=== PATIENT | female | born 1945 | race Caucasian/White ===

== ENCOUNTER → 2020-05-14 01:35 | Outpatient (CLI) | payer MEDICARE, SELFPAY ==
[2020-05-14 22:34] LABS: SARS-CoV-2 RNA PCR Negative
== END ==
PROVIDERS: PCP Internal Medicine; Visit Provider Internal Medicine Critical Care Medicine
DX: Z01.812 Encounter for preprocedural laboratory examination (principal); Z20.822 Contact with and (suspected) exposure to COVID-19; I49.9 Cardiac arrhythmia, unspecified
CPT/HCPCS: C9803; U0003; U0005

== ENCOUNTER 2020-05-14 12:32 | Outpatient (CLI) | payer MEDICARE, SELFPAY ==
--- NOTE | 2020-05-14 | ECHO_ITS ---
Patient Info Name: Laurel Sandy Age: 74 years : 1945 Gender: Female Ht: 60 in Wt: 185 lbs BSA: 1.93 m2 HR: 88 bpm BP: 145 / 78 mmHg Heart Rhythm: Atrial Fibrillation Technical Quality: Good Exam Date: 05/14/2020 1:21 PM Exam Location: [facility] Patient Status: Outpatient Admit Date: 05/14/2020 Staff Ordering Physician: PatrickCiro MD Alley Tender: Nayeli Gamez RDCS Attending Provider: CassCiro MD Exam Type: CA echo doppler color flow Study Info Indications - cardiach arrhythmia Complete two-dimensional, color flow and Doppler transthoracic echocardiogram is performed. Summary 1. Complete two-dimensional, color flow and Doppler transthoracic echocardiogram is performed. 2. The left ventricle is of normal size and thickness with good contractility of all segments and no focal wall motion abnormalities. The visual ejection fraction is 55-60% and calculated ejection fraction 64%. Diastolic dysfunction is present. 3. Right ventricular chamber dimension is mildly enlarged with normal systolic function.. 4. Left atrial chamber dimension is severely enlarged. 5. Right atrial chamber dimension is moderately enlarged. 6. There is moderate mitral valve regurgitation. 7. There is mild tricuspid valve regurgitation. 8. No pulmonary hypertension, estimated pulmonary arterial systolic pressure is 32 mmHg. 9. Atrial fibrillation. Left Ventricle Left ventricular chamber dimension is normal. Left ventricular systolic function is normal, estimated at 55-60%. There is no increased left ventricular wall thickness. Left ventricular septal wall motion is normal. The left ventricular diastolic function is abnormal. Right Ventricle Right ventricular chamber dimension is mildly enlarged with normal systolic function.. Right ventricular systolic function is normal. Left Atria Left atrial chamber dimension is severely enlarged. Right Atria Right atrial chamber dimension is moderately enlarged. Aortic Valve The aortic valve is trileaflet. There is mild aortic valve sclerosis. There is no aortic valve stenosis. There is no aortic valve regurgitation. Pulmonic Valve The pulmonic valve is normal. There is no pulmonic valve stenosis. There is no pulmonic regurgitation. Mitral Valve The mitral valve has thickened leaflets. There is no mitral valve stenosis. There is moderate mitral valve regurgitation. Tricuspid Valve The tricuspid valve leaflets are normal. There is no significant tricuspid valve stenosis. There is mild tricuspid valve regurgitation. No pulmonary hypertension, estimated pulmonary arterial systolic pressure is 32 mmHg. Pericardium/Pleural The pericardium appears normal. There is no pericardial effusion. Inferior Vena Cava Normal inferior vena cava with >50% collapse upon inspiration consistent with Empty right atrial pressure, 10 mmHg. Aorta The aortic root size at the sinus of Valsalva is normal. The prox ascending aorta size is normal. Left Ventricular Outflow Tract Name Value Normal LVOT 2D LVOT Diameter 2.0 cm LVOT Doppler LVOT
== END 2020-05-14 12:33 | disposition home or self-care (01) ==
PROVIDERS: PCP Internal Medicine; Visit Provider Internal Medicine
DX: I49.9 Cardiac arrhythmia, unspecified (principal); I48.91 Unspecified atrial fibrillation; I08.1 Rheumatic disorders of both mitral and tricuspid valves
CPT/HCPCS: 93306; C9803; U0003; U0005

== ENCOUNTER 2020-05-16 07:07 | Outpatient (CLI) | payer MEDICARE, SELFPAY ==
--- NOTE | 2020-06-02 22:12 | WPDSLEEPSTUD ---
Sleep Study Date of Study: 05/16/20 Ordering Provider: Ciro Nguyen, Interpreting Physician: Naima Durbin MD Sleep Study Type: Polysomnogram Height: 1.55 m Weight: 83.915 kg Body Mass Index: 34.9 Neck Circumference: 4.57 m Maben: 11 Reason for Sleep Study Loud snoring, excessive daytime sleepiness Sleep History Laurel Sandy is a 74 year-old female wakes up during the night, wakes up in the churn tender hours and has excessive daytime sleepiness. She frequently snores but it is never loud enough that others complain about it. She occasionally awakens at night with heartburn, belching or coughing. She does not awaken from sleep feeling short of breath. She frequently has trouble sleeping with a cold. She does not wake up gasping for breath at night and does not have severe breathing problems reported to her by others. She rarely sweats excessively at night. She frequently notices her heart pounding or beating irregularly at night. She frequently falls asleep during the day, never involuntarily and never while driving. She does not have loss of muscle tone with strong emotion. She does not have daytime difficulties due to excessive sleepiness. She does not feel paralyzed on waking or falling asleep. She occasionally has vivid dreamlike scenes upon awakening or falling asleep. She does not feel afraid to go to sleep. She occasionally has nightmares. She occasionally remembers her dreams. She does not have racing thoughts. She rarely feels sad or depressed. She rarely has anxiety. She rarely has muscular tension. She rarely notices parts of her body jerking and she rarely kicks at night. She really has crawling and aching feelings in her legs. She occasionally has leg pain at night. She does not have morning jaw pain. She frequently grinds her teeth during sleep. She occasionally has bothered by pain during the day, occasionally has awakened by pain at night. She frequently wakes up feeling stiff in the morning, occasionally with sore achy muscles and occasionally with pain in the neck and spine. She has fatigue and nightmares. Normal bedtime is 10:30 p.m. taking 5 minutes to fall asleep. She wakes 1 or 2 times at night to urinate. It takes her 5- 30 minutes to return to sleep. She estimates getting 6 hours of sleep most nights. She wakes in the morning sometime between 4:00 a.m. and 7:00 a.m.. Her weekend schedule is the same. She may take a nap in the afternoon or evening. A short 10 or 15 minute nap may be refreshing. She is usually drowsy in the morning for 3 hours or longer. Habits: Never smoked tobacco. No caffeine alcohol or recreational drugs. [facility] Past Medical History Medical History (Updated 06/02/20 @ 22:27 by Naima Durbin MD) Arthritis Chronic anticoagulation Coronary artery disease Hyperlipidemia Hypertension Rhinitis Seasonal asthma Surgical History Surgical History (Updated 06/02/20 @ 22:22 by Naima Durbin MD) History of mastectomy Social History Social History (Updated 06/02/20 @ 22:22 by Naima Durbin MD) Smoking status: Never smoker Alcohol intake: never Occupation/Education: retired Medications Medications: atenolol 100 mg a day Rosuvastatin 10 mg a day enalapril 10 mg a day hydrochlorothiazide 25 mg a day Eliquis 5 mg b.i.d. ProAir 1 puff Q 6 hours p.r.n. shortness of breath Pataday eye drops 1 drop each eye daily glucosamine and chondroitin 1 tablet daily Flonase when needed for nasal allergies Zaditor eye drops daily when needed Sleep Procedure This test was performed using the [employer] multiple channel system including EOG, EEG, submental EMG, EKG, nasal and oral airflow using thermistors and nasal pressure sensors, chest and abdominal belts for body position data, and pulse oximetry. Video monitoring was also performed. The study was scored using CMS guidelines. Sleep Architecture The recording time is 412.8 minutes. The slee
[2020-06-02 22:38] VITALS: BMI 34.9
== END 2020-05-16 07:08 | disposition home or self-care (01) ==
LOC: ANHCSM 07:08
PROVIDERS: PCP Internal Medicine; Visit Provider Internal Medicine
DX: R06.83 Snoring (principal); I48.20 Chronic atrial fibrillation, unspecified
CPT/HCPCS: 95810

== ENCOUNTER 2023-05-10 22:38 | Emergency (ER) | payer MEDICARE, OTHER, SELFPAY ==
--- NOTE | ~2023-05-10 | CT_ITS ---
EXAMINATION: CT brain wo con DATE: 05/10/2023 23:44 INDICATION: dizziness, L arm pins and needles, L eye unfocused . TECHNIQUE: Computed tomography (CT) of the head was performed without intravenous contrast. The mA wa s adjusted according to patient size. Iterative reconstruction technique was employed. The dose-lengt h product was 605.33 mGy-cm. COMPARISON: None. FINDINGS: No acute intracranial hemorrhage or extra-axial fluid collection. No hydrocephalus, mass, or herniation. No acute ischemic infarct. Unremarkable dural venous sinus attenuation. No acute osseous abnormality. The aerated spaces are clear. Mild atrophy and chronic white matter change. Atherosclerotic intracranial calcification. IMPRESSION: No acute intracranial process. Reviewed, dictated and finalized at location K. [facility]
[2023-05-10 22:52] VITALS: BP 142/100; PULSE 78; RESP 17; TEMP 36.7; O2SAT 99
[2023-05-10 23:19] LABS: Glucose Point of Care 90 mg/dl (65-105)
--- NOTE | 2023-05-11 | ECG_ITS ---
Measurements Intervals [place] Rate: 67 P: CT: 0 QRS: -3 QRSD: 89 T: 46 QT: 411 QTc: 437 Interpretive Statements ATRIAL FIBRILLATION POSSIBLE SEPTAL MYOCARDIAL INFARCTION , PROBABLY OLD [40+ ms Q WAVE IN V1/V2] COMPARED TO ECG 12/22/2018 21:08:43 ATRIAL FIBRILLATION NOW PRESENT MYOCARDIAL INFARCT FINDING NOW PRESENT Electronically Signed On 05-11-2023 15:15:27 SMALL STOCK FACER by Mariana Medeiros M.D.
[2023-05-11 00:15] LABS: Basophils Percent Auto 0.5 % (0.2-1.2); Eosinophils Absolute Auto 0.2 K/mm3 (0-0.3); Hematocrit 44.5 % (37.0-47.0); Immature Granulocyte Absolute 0.01 K/mm3 (0.00-0.031); Immature Granulocyte Percent A 0.2 % (0-0.5); Lymphocytes Percent Auto 36.3 % (18.3-44.2); Mean Corpuscular HGB Conc 33.7 g/dl (32-36); Mean Corpuscular Hemoglobin 30.9 pg (26-34); Mean Corpuscular Volume 91.6 fl (80-100); Mean Platelet Volume 10.3 fl (7.4-10.4); Monocytes Absolute Auto 0.8 K/mm3 (0.1-0.6); Monocytes Percent Auto 11.8 % (2.6-8.5); Neutrophils Absolute Auto 3.1 K/mm3 (1.3-6.7); Neutrophils Percent Auto 48.2 % (45.5-73.1); Platelet Count Result 216 k/mm3 (150-375); Red Blood Count 4.86 M/mm3 (4.2-5.4); Red Cell Distribution Width 13.4 % (11.5-14.5); White Blood Count 6.3 K/mm3 (4.5-10.0)
[2023-05-11 00:27] LABS: INR 1.1; Prothrombin Time 14.6 Seconds (11.1-14.7)
[2023-05-11 00:28] LABS: Partial Thromboplastin Time 32.5 SECONDS (22.3-36.8)
[2023-05-11 00:30] LABS: Alanine Aminotransferase 28 U/L (6-35); Albumin Level 4.3 g/dL (3.5-5.1); Alkaline Phosphatase 79 U/L (38-126); Anion Gap 5 mmol/L (8-16); Aspartate Amino Transferase 35 U/L (14-36); Bilirubin,Total 0.7 mg/dL (0.2-1.3); Blood Urea Nitrogen 14 mg/dL (7-17); Calcium 9.5 mg/dL (8.4-10.2); Carbon Dioxide 33 mmol/L (22-30); Chloride 99 mmol/L (98-107); Estimated CRCL calculation 51 ml/min; Estimated Glomerular Filt Rate > 60; Glucose 94 mg/dL (65-110); Potassium 3.8 mmol/L (3.4-5.0); Sodium 137 mmol/L (137-145)
[2023-05-11 00:42] LABS: Troponin I < 0.012 ng/mL (0.000-0.034)
[2023-05-11] MEDS: SODIUM CHLORIDE 0.9% IV 1,000 ML 999 ML IV CONT (01:58)
[2023-05-11 02:08] LABS: Magnesium 2.3 mg/dL (1.6-2.3)
[2023-05-11 02:36] LABS: Appearance Urine Cloudy (Clear); Bacteria Urine 4+ /hpf; Bilirubin Urine Negative (Negative); Color Urine Yellow (Yellow); Glucose Urine UA Negative (Negative); Ketones Urine Negative (Negative); Leukocyte Esterase Ur 3+ LEU/UL (Negative); Nitrate Urine Positive (Negative); Non Pathogenic Casts 0-2; Protein Urine Negative (Negative); RBC Urine 0-2 /hpf (0-2); Specific Grav Ur 1.008 (1.001-1.035); Squamous Epithelial Cell Urine None seen /hpf (Few); WBC Urine >100 /hpf; pH Urine 7.5 (5.0-9.0)
[2023-05-11 02:41] LABS: Add Urine Microscopic? YES
[2023-05-11 03:26] VITALS: BP 143/69; PULSE 64; RESP 15; O2SAT 99
[2023-05-11 03:30] VITALS: PULSE 63
[2023-05-11 04:10] VITALS: BP 136/85; PULSE 64; RESP 15; O2SAT 97
--- NOTE | 2023-05-11 04:15 | ED.GENADULT ---
HPI - General Adult General Chief complaint: Dizziness Stated complaint: dizziness, left eye wavy Time Seen by Provider: 05/11/23 01:21 History of Present Illness HPI narrative: patient 77-year-old female presents emergency department with chief complaint of dizziness. Patient reports that she had an episode where she was trying to read and notice that her eyes were moving and also noticed that she had waves in her vision the patient also reports that she had pins and needles in her left arm when this occurred. The patient states it started around 9:30 p.m. and lasted for just a few minutes. The patient states during this episode she had some tightness in her chest as well. The patient reports no syncope denies focal weakness Related Data Allergies Allergy/AdvReac Type Severity Reaction Status Date / Time codeine Allergy Unknown Verified 12/22/18 16:25 latex Allergy Unknown Verified 12/22/18 16:25 Review of Systems Review of Systems: A 10 system review of systems was completed on the patient and is negative except for what is stated in the HPI. Nursing and ancillary documentation was reviewed. [facility] Past Medical History Medical History Arthritis Chronic anticoagulation Coronary artery disease Hyperlipidemia Hypertension Rhinitis Seasonal asthma Surgical History Surgical History History of mastectomy Social History Social History Smoking status: Never smoker Alcohol intake: never Occupation/Education: retired Exam Narrative: GENERAL: Well-appearing, well-nourished, and in no acute distress. HEAD: Normocephalic, atraumatic. EYES: PERRLA and EOMI. ENT: Nares clear, no rhinorrhea or epistaxis. Mucous membranes moist. NECK: Supple. CHEST: Clear to auscultation. No respiratory distress. HEART: Regular rate and rhythm. No murmur heard. Normal peripheral pulses. ABDOMEN: Soft, nontender, nondistended, normal active bowel sounds. EXTREMITIES: Normal range of motion. No edema. SKIN: Warm, dry, no rash. NEURO: No focal deficits. Alert and oriented x3. NIH 0 PSYCH: Normal mood and affect. Course Vital Signs Vital signs: Vital Signs Temperature 36.7 C 05/10/23 22:52 Pulse Rate 78 05/10/23 22:52 Respiratory Rate 17 05/10/23 22:52 Blood Pressure 142/100 H 05/10/23 22:52 Pulse Oximetry 99 05/10/23 22:52 Oxygen Delivery Room Air 05/10/23 22:52 Temperature 36.7 C 05/10/23 22:52 Pulse Rate 64 05/11/23 04:10 Respiratory Rate 15 05/11/23 04:10 Blood Pressure 136/85 05/11/23 04:10 Pulse Oximetry 97 05/11/23 04:10 Oxygen Delivery Room Air 05/10/23 22:52 Medical Decision Making MDM Narrative Medical decision making narrative: differential diagnosis includes dysrhythmia, dehydration, electrolyte abnormality, infection CT head showed no acute abnormality urinalysis showed 4+ bacteria greater than 100 whites and 3+ leukocyte esterase electrolytes were within normal limits CBC showed a white count of 6.3 and hemoglobin of 15.0 troponin was less than 0.012 lactic acid was 1.0 patient is currently asymptomatic and feels back to her baseline. Vital Signs Vital Signs: Vital Signs Temperature 36.7 C 05/10/23 22:52 Pulse Rate 78 05/10/23 22:52 Respiratory Rate 17 05/10/23 22:52 Blood Pressure 142/100 H 05/10/23 22:52 Pulse Oximetry 99 05/10/23 22:52 Oxygen Delivery Room Air 05/10/23 22:52 Temperature 36.7 C 05/10/23 22:52 Pulse Rate 64 05/11/23 04:10 Respiratory Rate 15 05/11/23 04:10 Blood Pressure 136/85 05/11/23 04:10 Pulse Oximetry 97 05/11/23 04:10 Oxygen Delivery Room Air 05/10/23 22:52 Lab Data 05/10/23 23:15 05/10/23 23:15 Labs: Lab Results 05/10/23 05/10/23 05/11/23 R
[2023-05-11 04:42] VITALS: BP 137/88; PULSE 71; RESP 15; O2SAT 100
== END 2023-05-11 04:43 | disposition home or self-care (01) ==
PROVIDERS: Emergency Provider Emergency Medicine; PCP Internal Medicine
DX: N39.0 Urinary tract infection, site not specified (principal); R42 Dizziness and giddiness; M19.90 Unspecified osteoarthritis, unspecified site; I25.10 Atherosclerotic heart disease of native coronary artery without angina pectoris; E78.5 Hyperlipidemia, unspecified; I10 Essential (primary) hypertension; D68.318 Other hemorrhagic disorder due to intrinsic circulating anticoagulants, antibodies, or inhibitors
CPT/HCPCS: 36415; 70450; 80053; 81001; 82948; 83605; 83735; 84484; 85025; 85610; 85730; 87077; 87086; 87186; 93005; 96360; 99284; J7030

== ENCOUNTER 2023-09-09 00:16 | Day surgery (SDC) | payer MEDICARE, OTHER, SELFPAY ==
[2023-08-31 11:09] VITALS: BMI 32.1
[2023-09-09 10:24] VITALS: BP 118/89; PULSE 62; RESP 18; TEMP 36.8; O2SAT 99
[2023-09-09] MEDS: LACTATED RINGERS 1,000 ML 150 ML IV CONT (10:40)
--- NOTE | 2023-09-09 10:57 | PM.HPGS ---
History of Present Illness History of Present Illness Consent: Risks, benefits, and alternatives have been discussed and questions answered. Patient agrees to proceed with procedure. Chief complaint: History colon polyps Narrative: Laurel Sandy is a 78 year old female here for screening, last one 9 years ago, also h/o constipation Review of Systems Review of Systems: All systems reviewed & are unremarkable except as noted in HPI and below PMFSH Past Medical History Medical History (Updated 09/09/23 @ 10:57 by Duncan Stanley MD) Arthritis Chronic anticoagulation Colon cancer screening Coronary artery disease Hyperlipidemia Hypertension Rhinitis Seasonal asthma Surgical History Surgical History History of mastectomy Social History Social History Smoking status: Never smoker Alcohol intake: never Substance use: never Substance use type: does not use Living arrangements: with family Occupation/Education: retired Spiritual care concerns: No Meds Home Medications and Allergies Home Medications Medication Instructions Recorded Confirmed Type [place] 3 2,000 mg PO TID 08/31/23 09/09/23 History albuterol sulfate 90 mcg/actuation 2 puff inhalation Q6H PRN 08/31/23 09/09/23 History aerosol inhaler Shortness Of Breath Or Wheezing apixaban 5 mg tablet (Eliquis) 5 mg PO BID 08/31/23 09/09/23 History ascorbic acid (vitamin C) 500 mg 500 mg PO DAILY 08/31/23 09/09/23 History tablet atenolol 25 mg tablet 25 mg PO BID 08/31/23 09/09/23 History carboxymethylcellulose 0.5 1 drp EACH EYE Q4-6H 08/31/23 09/09/23 History %-glycerin 1 % (PF) eye drops,dropperette (Refresh Relieva PF) enalapril maleate 10 mg tablet 10 mg PO DAILY 08/31/23 09/09/23 History fluticasone propionate 50 1 spray intranasal DAILY PRN 08/31/23 09/09/23 History mcg/actuation nasal ALLERGIES spray,suspension glucosamine 750 [id number] 1 tablet PO BID 08/31/23 09/09/23 History no1 644 mg-C 30 mg-sharona 1 mg tablet (Osteo Bi-Flex Triple Strength) hydrochlorothiazide 25 mg tablet 25 mg PO DAILY 08/31/23 09/09/23 History mecobalamin (vitamin B12) 320 mg PO DAILY 08/31/23 09/09/23 History hiwvfiif-pytz-wczr 8 mg-folic 400 1 tablet PO DAILY 08/31/23 09/09/23 History mcg-K 50 mcg-lutein 300 mcg tablet (Multivitamin Women 50 Plus) olopatadine 0.1 % eye drops 1 drp EACH EYE BID 08/31/23 09/09/23 History (Pataday Twice Daily Relief) rosuvastatin 10 mg tablet 10 mg PO DAILY 08/31/23 09/09/23 History Allergies Allergy/AdvReac Type Severity Reaction Status Date / Time latex Allergy Severe Blister Verified 09/09/23 10:20 codeine Allergy Unknown Unknown Verified 09/09/23 10:20 contrast media Allergy Intermediate Flushing Uncoded 09/09/23 10:20 Vital Signs Vital Signs - 24 hr 09/09/23 10:24 Temperature 98.2 F Pulse Rate 62 Respiratory Rate 18 Blood Pressure 118/89 Pulse Oximetry 99 Oxygen Delivery Room Air Exam Const: General: comfortable and no acute distress HENMT: Face/Nose/Sinus: Normal nares present Eyes: General: appearance normal, both eyes and all related structures Neck: Neck: no JVD Resp: Auscultation: clear to auscultation bilaterally Cardio: Rate: regular rate Rhythm: regular rhythm GI: Inspection: non-distended GI Palp: Yes Soft to palpation Skin: General skin exam: normal color Neuro: General: gait normal Speech: normal speech Extrem: General: normal to inspection Psych: Mental Status: mental status grossly normal Assessment and Plan Assessment and plan (1) Colon cancer screening: Code(s): Z12.11 - Encounter for screening for malignant neoplasm of colon Status: Acute Assessment and Plan: colonoscopy
--- NOTE | 2023-09-09 10:57 | WPDANESEPPF ---
Anes - Initial Pre Proc Eval Procedure: Operation Date: 09/09/23 11:30 Proposed Procedures p Colonoscopy - Duncan Stanley MD Date/Time: 09/09/23 10:57 Surgeon: Duncan Stanley MD Pre Op Diagnosis: History colon polyps Patient Data Age: 78 Gender: F Height: 1.55 m Weight: 76.6 kg Last Vital Signs Temp 98.2 F 09/09/23 10:24 Pulse 62 09/09/23 10:24 Resp 18 09/09/23 10:24 BP 118/89 09/09/23 10:24 Pulse Ox 99 09/09/23 10:24 O2 Del Method Room Air 09/09/23 10:24 Allergies Allergy/AdvReac Type Severity Reaction Status Date / Time latex Allergy Severe Blister Verified 09/09/23 10:20 codeine Allergy Unknown Unknown Verified 09/09/23 10:20 contrast media Allergy Intermediate Flushing Uncoded 09/09/23 10:20 Home Medications Medication Instructions Recorded Confirmed Type [place] 3 2,000 mg PO TID 08/31/23 09/09/23 History albuterol sulfate 90 mcg/actuation 2 puff inhalation Q6H PRN 08/31/23 09/09/23 History aerosol inhaler Shortness Of Breath Or Wheezing apixaban 5 mg tablet (Eliquis) 5 mg PO BID 08/31/23 09/09/23 History ascorbic acid (vitamin C) 500 mg 500 mg PO DAILY 08/31/23 09/09/23 History tablet atenolol 25 mg tablet 25 mg PO BID 08/31/23 09/09/23 History carboxymethylcellulose 0.5 1 drp EACH EYE Q4-6H 08/31/23 09/09/23 History %-glycerin 1 % (PF) eye drops,dropperette (Refresh Relieva PF) enalapril maleate 10 mg tablet 10 mg PO DAILY 08/31/23 09/09/23 History fluticasone propionate 50 1 spray intranasal DAILY PRN 08/31/23 09/09/23 History mcg/actuation nasal ALLERGIES spray,suspension glucosamine 750 [id number]-[id number] 1 tablet PO BID 08/31/23 09/09/23 History no1 644 mg-C 30 mg-sharona 1 mg tablet (Osteo Bi-Flex Triple Strength) hydrochlorothiazide 25 mg tablet 25 mg PO DAILY 08/31/23 09/09/23 History mecobalamin (vitamin B12) 320 mg PO DAILY 08/31/23 09/09/23 History lehwkyna-jehq-tzir 8 mg-folic 400 1 tablet PO DAILY 08/31/23 09/09/23 History mcg-K 50 mcg-lutein 300 mcg tablet (Multivitamin Women 50 Plus) olopatadine 0.1 % eye drops 1 drp EACH EYE BID 08/31/23 09/09/23 History (Pataday Twice Daily Relief) rosuvastatin 10 mg tablet 10 mg PO DAILY 08/31/23 09/09/23 History Patient hx anesthesia problems: none Family hx anesthesia problems: none Results Review: All pre-operative results and documents have been reviewed as part of the pre-operative evaluation. [facility] Past Medical History Medical History Arthritis Chronic anticoagulation Coronary artery disease Hyperlipidemia Hypertension Rhinitis Seasonal asthma Surgical History Surgical History History of mastectomy Social History Social History Smoking status: Never smoker Alcohol intake: never Substance use: never Substance use type: does not use Living arrangements: with family Occupation/Education: retired Spiritual care concerns: No Anes - Eval Final PreProcedure Day of Procedure 09/09/23 10:57 Patient weight: normal Heart: regular rate and rhythm Lungs: clear to auscultation Airway: Mallampati scale class III Neurological: alert and oriented Last oral intake: >/= 8 hours ASA classification: III Emergent: no Anesthetic plan: proceed Anesthesia type and monitoring: general GIVS and standard monitoring Results Review: All pre-operative results and documents have been reviewed as part of the pre-operative evaluation. Informed Consent: The patient's anesthetic plan and its attendant risks and benefits were discussed with the patient/family/POA. Questions were solicited and answers provided to the satisfaction of the patient/family/POA.
[2023-09-09 11:18] VITALS: BP 111/59; PULSE 62; RESP 15; O2SAT 96
--- NOTE | 2023-09-09 11:20 | ECG_ITS ---
[facility] [address] Test Date: 2023-09-09 Pat Name: Laurel Sandy Department: Room: Gender: F Car Dropper: : 1945 Requested By: Waylon Lux Order Number: [id number] Kalyan MD: Ciro Gunn M.D. Measurements Intervals [place] Rate: 58 P: 0 [place]: 0 QRS: -11 QRSD: 88 T: 15 QT: 432 QTc: 426 Interpretive Statements ATRIAL FLUTTER/TACHYCARDIA WITH SLOW VENTRICULAR RESPONSE ABNORMAL RHYTHM ECG No previous ECG available for comparison Electronically Signed On 09-10-2023 07:47:52 CDT by Ciro Gunn M.D.
[2023-09-09 11:28] VITALS: BP 108/58; PULSE 60; RESP 14; O2SAT 96
[2023-09-09 11:38] VITALS: BP 150/57; PULSE 60; RESP 17; O2SAT 97
--- NOTE | 2023-09-09 12:57 | SUR.PHASEII ---
1120 abnormal heart rhythm noted during the case per Anesthesia. EKG ordered by Dr. Lux. [address] Lux anesthesiologist. No new orders received.
== END 2023-09-09 11:55 | disposition home or self-care (01) ==
PROVIDERS: PCP Internal Medicine; Visit Provider Internal Medicine Gastroenterology
PROC: 0DJD8ZZ Inspection of Lower Intestinal Tract, Via Natural or Artificial Opening Endoscopic (ICD-10-PCS; CPT 45378; principal; 2023-09-09 11:30)
DX: Z12.11 Encounter for screening for malignant neoplasm of colon (principal); D12.2 Benign neoplasm of ascending colon; K57.30 Diverticulosis of large intestine without perforation or abscess without bleeding; K64.8 Other hemorrhoids; I25.10 Atherosclerotic heart disease of native coronary artery without angina pectoris; I10 Essential (primary) hypertension; E78.5 Hyperlipidemia, unspecified; Z79.01 Long term (current) use of anticoagulants
CPT/HCPCS: 45385; 88305; 93005; J1100; J2001; J2405; J2704; J7120

== ENCOUNTER 2023-10-27 14:50 | Outpatient (CLI) | payer MEDICARE, OTHER, SELFPAY ==
[2023-10-27 15:17] LABS: Hematocrit 43.3 % (37.0-47.0); Hemoglobin 14.8 g/dL (12.0-15.0); Mean Corpuscular HGB Conc 34.2 g/dl (32-36); Mean Corpuscular Hemoglobin 31.6 pg (26-34); Mean Corpuscular Volume 92.5 fl (80-100); Mean Platelet Volume 10.1 fl (7.4-10.4); Platelet Count Result 213 k/mm3 (150-375); Red Blood Count 4.68 M/mm3 (4.2-5.4); Red Cell Distribution Width 13.6 % (11.5-14.5); White Blood Count 5.9 K/mm3 (4.5-10.0)
[2023-10-27 15:38] LABS: Alanine Aminotransferase 29 U/L (6-35); Albumin Level 4.3 g/dL (3.5-5.1); Alkaline Phosphatase 59 U/L (38-126); Anion Gap 6 mmol/L (4-12); Aspartate Amino Transferase 35 U/L (14-36); Bilirubin,Total 0.7 mg/dL (0.2-1.3); Blood Urea Nitrogen 20 mg/dL (7-17); Carbon Dioxide 32 mmol/L (22-30); Chloride 93 mmol/L (98-107); Cholesterol 108 mg/dL (0-200); Estimated Glomerular Filt Rate > 60; Glucose 103 mg/dL (65-110); HDL Direct 40 mg/dL; Potassium 3.7 mmol/L (3.4-5.0); Sodium 131 mmol/L (137-145); Triglycerides 138 mg/dL (<150)
[2023-10-27 15:49] LABS: LDL Cholesterol Direct 47 mg/dL
== END 2023-10-27 14:51 | disposition home or self-care (01) ==
LOC: ANHLAB 14:54
PROVIDERS: PCP Internal Medicine; Visit Provider Internal Medicine
DX: I10 Essential (primary) hypertension (principal)
CPT/HCPCS: 36415; 80053; 80061; 85027

== ENCOUNTER 2024-01-16 16:47 | Emergency (ER) | payer MEDICARE, OTHER, SELFPAY ==
--- NOTE | ~2024-01-16 | XR_ITS ---
EXAMINATION: XR hand RT min 3V DATE: 01/16/2024 17:28 INDICATION: Right hand pain. Fall. TECHNIQUE: 3 views of right hand were obtained. COMPARISON: None. FINDINGS: Alignment is normal. No fracture. There is moderate osteoarthritis of triscaphe joint and m ild osteoarthritis of first carpometacarpal joint and some of the interphalangeal joints. There is mo derate osteoarthritis of second distal interphalangeal joint. IMPRESSION: 1. No fracture. 2. Polyarticular osteoarthritis. Reviewed, dictated and finalized at location A.
[2024-01-16 16:59] VITALS: BP 121/83; PULSE 76; RESP 18; TEMP 36.8; O2SAT 98
--- NOTE | 2024-01-16 17:18 | ED_ITS ---
HPI - Extremity Injury (Upper) General Chief Complaint: Extremity Injury, Upper Stated Complaint: Injured Right Hand/Knee Time Seen by Provider: 01/16/24 17:08 Source: patient and RN notes reviewed Mode of arrival: ambulatory Limitations: no limitations History of Present Illness HPI narrative: Patient presents today with an injury to her right hand. Two days ago she tripped and fell in her basement under her hand. Denies numbness or tingling. Reports radiation of pain up her forearm. She currently rates her pain 3/10 and has been taking Tylenol with some mild relief. Denies any additional pain. Related Data Home Medications Medication Instructions Recorded Confirmed [place] 3 2,000 mg PO TID 08/31/23 09/09/23 albuterol sulfate 90 mcg/actuation 2 puff inhalation Q6H PRN 08/31/23 09/09/23 aerosol inhaler Shortness Of Breath Or Wheezing apixaban 5 mg tablet (Eliquis) 5 mg PO BID 08/31/23 09/09/23 ascorbic acid (vitamin C) 500 mg 500 mg PO DAILY 08/31/23 09/09/23 tablet atenolol 25 mg tablet 25 mg PO BID 08/31/23 09/09/23 carboxymethylcellulose 0.5 1 drp EACH EYE Q4-6H 08/31/23 09/09/23 %-glycerin 1 % (PF) eye drops,dropperette (Refresh Relieva PF) enalapril maleate 10 mg tablet 10 mg PO DAILY 08/31/23 09/09/23 fluticasone propionate 50 1 spray intranasal DAILY PRN 08/31/23 09/09/23 mcg/actuation nasal ALLERGIES spray,suspension glucosamine 750 en-uscchqiovhp-fej 1 tablet PO BID 08/31/23 09/09/23 no1 644 mg-C 30 mg-sharona 1 mg tablet (Osteo Bi-Flex Triple Strength) hydrochlorothiazide 25 mg tablet 25 mg PO DAILY 08/31/23 09/09/23 mecobalamin (vitamin B12) 320 mg PO DAILY 08/31/23 09/09/23 [id number] 8 mg-folic 400 1 tablet PO DAILY 08/31/23 09/09/23 mcg-K 50 mcg-lutein 300 mcg tablet (Multivitamin Women 50 Plus) olopatadine 0.1 % eye drops 1 drp EACH EYE BID 08/31/23 09/09/23 (Pataday Twice Daily Relief) rosuvastatin 10 mg tablet 10 mg PO DAILY 08/31/23 09/09/23 Allergies Allergy/AdvReac Type Severity Reaction Status Date / Time latex Allergy Severe Blister Verified 01/16/24 17:02 codeine Allergy Unknown Unknown Verified 01/16/24 17:02 contrast media Allergy Intermediate Flushing Uncoded 01/16/24 17:02 Review of Systems Review of Systems: CONSTITUTIONAL: Denies body aches, fever, chills, or sweats. EYES: Denies visual changes, redness, or discharge. ENT: Denies rhinorrhea, congestion, sore throat, or otalgia. CARDIOVASCULAR: Denies chest pain, palpitations, or edema. RESPIRATORY: Denies cough or dyspnea. GASTROINTESTINAL: Denies abdominal pain, nausea, vomiting, or diarrhea. GENITOURINARY: Denies dysuria or hematuria. SKIN: Denies rash, itching, or wounds. MUSCULOSKELETAL: Denies back pain+ right hand injury NEUROLOGIC: Denies headache, numbness, tingling, or weakness. PSYCH: Denies depression or anxiety. [facility] Past Medical History Medical History Arthritis Chronic anticoagulation Colon cancer screening Coronary artery disease Hyperlipidemia Hypertension Rhinitis Seasonal asthma Surgical History Surgical History History of mastectomy Social History Social History Smoking status: Never smoker Alcohol intake: never Substance use: never Substance use type: does not use Living arrangements: with family Occupation/Education: retired Spiritual care concerns: No Comments At time of signature, I have reviewed and agree with nursing past medical, surgical, social and family history unless otherwise noted. Please see nursing chart for further information. There is no relevant family history pertinent to the presenting complaint Exam Narrative: GENERAL: Well-appearing, well-nourished, and in no acute distress. HEAD: Normocephalic, atraumatic. EYES: EOMI. No redness or drainage. Conjunctivae normal. ENT: Mucous membranes pink and moist. NECK: Normal AROM. CHEST: No respiratory distress. EXTREMITIES: Right hand: Moderate ecchymosis to the MCPs 2 through 5 with some mild edema to the dorsum of the hand and tenderness to this area as well. Distal sensation intact. Capillary refill normal. Full range of motion of fingers with some mild increased pain. SKIN: Warm, dry, no rash. Capillary refill normal. Normal skin turgor. NEURO: No focal deficits. Alert and oriented x3. Gait steady. PSYCH: Normal affect. No signs of depression or anxiety. Course Course Level of Care: Express Care Visit Vital Signs Vital signs: Vital Signs Temperature 98.2 F 01/16/24 16:59 Pulse Rate 76 01/16/24 16:59 Respiratory Rate 18 01/16/24 16:59 Blood Pressure 121/83 01/16/24 16:59 Pulse Oximetry 98 01/16/24 16:59 Oxygen Delivery Room Air 01/16/24 16:59 Temperature 98.2 F 01/16/24 16:59 Pulse Rate 76 01/16/24 16:59 Respiratory Rate 18 01/16/24 16:59 Blood Pressure 121/83 01/16/24 16:59 Pulse Oximetry 98 01/16/24 16:59 Oxygen Delivery Room Air 01/16/24 16:59 Reviewed MDM - Extremity Injury (Upper) MDM Narrative Medical decision making narrative: Patient's x-rays negative for fracture. Recommend conservative treatment with orthopedic follow-up if symptoms do not improve. Anticipatory guidance given. Differential Diagnosis Differential diagnosis: Likely fracture of hand and other (Contusion) Imaging Data Radiologist's impression: ITS Impressions Hand X-Ray 01/16/24 17:39 IMPRESSION: 1. No fracture. 2. Polyarticular osteoarthritis. Critical Care Time Critical Care Time Critical Care Time: No Discharge Plan Discharge Clinical Impression: Contusion of hand, right Qualifiers: Encounter type: initial encounter Qualified Code(s): S60.221A - Contusion of right hand, initial encounter Patient Disposition: Home, Self-Care Condition: Stable Instructions: Contusion in Adults (ED) Additional Instructions: Your x-rays negative for fracture today. Continue Tylenol for pain if needed. Follow-up with your PCP in 1 week if symptoms are not improving. Your blood pressure was elevated above 120/80 today at Urgent Care. This puts you above the threshold for follow up. Please schedule a followup visit with your personal physician as soon as possible, for further evaluation and treatment. Even blood pressure exceeding 120/80 may indicate pre-hypertension. Prescriptions: No Action enalapril maleate 10 mg tablet 10 mg PO DAILY atenolol 25 mg tablet 25 mg PO BID ascorbic acid (vitamin C) 500 mg Tablet 500 mg PO DAILY olopatadine [Pataday Twice Daily Relief] 0.1 % Drops 1 drp EACH EYE BID Rx Instructions: separate doses by at least 6-8 hours hydrochlorothiazide 25 mg tablet 25 mg PO DAILY albuterol sulfate 90 mcg/actuation HFA aerosol inhaler 2 puff INHALATION Q6H PRN (Reason: Shortness Of Breath Or Wheezing) fluticasone propionate [Flonase] 50 mcg/actuation [place],Suspension 1 spray INTRANASAL DAILY PRN (Reason: ALLERGIES) Rx Instructions: administer into each nostril rosuvastatin 10 mg tablet 10 mg PO DAILY Multivitamin Women 50 Plus 8 mg iron-400 mcg-50 mcg Tablet 1 tablet PO DAILY Eliquis 5 mg tablet 5 mg PO BID Osteo Bi-Flex Triple Strength 750 mg-644 mg- 30 mg-1 mg Tablet 1 tablet PO BID Refresh Relieva PF 0.5-1 % Dropperette 1 drp EACH EYE Q4-6H [place] 3 2,000 mg PO TID mecobalamin (vitamin B12) 320 mg PO DAILY Follow-up/Referrals: Patrick,MD Ciro [Primary Care Provider] - Time of Disposition: 17:52
== END 2024-01-16 17:55 | disposition home or self-care (01) ==
PROVIDERS: Emergency Provider Nurse Practitioner; PCP Internal Medicine
DX: S60.221A Contusion of right hand, initial encounter (principal); W01.0XXA Fall on same level from slipping, tripping and stumbling without subsequent striking against object, initial encounter; M19.90 Unspecified osteoarthritis, unspecified site; I25.10 Atherosclerotic heart disease of native coronary artery without angina pectoris; E78.5 Hyperlipidemia, unspecified; I10 Essential (primary) hypertension; J45.909 Unspecified asthma, uncomplicated; Z90.10 Acquired absence of unspecified breast and nipple; Z79.01 Long term (current) use of anticoagulants
CPT/HCPCS: 73130; 99213; G0463

== ENCOUNTER 2024-05-17 14:10 | Outpatient (CLI) | payer MEDICARE, OTHER, SELFPAY ==
--- OUTSIDE RECORDS SUMMARY | 2024-05-17 14:18 | XMS_ITS | Clinical Summary ---
Author Organization [facility] Address [address] [place] [address] Care Team Providers Care Back Joiner Name Role Phone Ciro Nguyen MD Primary Care Provider Allergies Active Allergy Reactions Criticality Noted Date Comments Adhesive Tape-Silicones Hives Medium 06/07/2017 Codeine Nausea & Vomiting Low 06/07/2017 Latex Hives Medium 06/07/2017 Medications PROAIR HFA 90 mcg/actuation inhaler 2 puffs as needed. 7 Active atenolol (TENORMIN) 100 mg tablet 100 mg daily. Active enalapril (VASOTEC) 10 mg tablet 10 mg daily. 8 Active hydroCHLOROthia zide (HYDRODIURIL) 25 mg tablet 25 mg daily. 8 Active rosuvastatin (CRESTOR) 10 mg tablet 10 mg daily. Active cetirizine 10 mg capsule Take by mouth. Acti ve artificial tears (SYSTANE) 0.3 % gel Apply to both eyes. Active alcaftadine 0.25 % drops Administer into affected eye(s). Active geriatric multivitamin-mi n tablet Take 1 tablet by mouth daily. Active Eliquis 5 mg tablet 1 Active glucosamine-D3- hyaluronic acid 1,000 mg- 25 mcg-1.65 mg tablet Glucosamine Active ketotifen (Zaditor) 0.025 % ophthalmic solution Zaditor Active Active Problems Problem Noted Date Diagnosed Date Permanent atrial fibrillation (CMS/HCC) 05/26/19 21 Hypertension Mixed hyperlipidemia Nonrheumatic mitral valve regurgitation Surgical History Surgery Date Site/Laterality Comments BREAST LUMPECTOMY 04/04/1995 - 04/03/1996 Left left breast ca w radiation/chemo NECK SURGERY HYSTERECTOMY GALLBLADDER SURGERY BREAST BIOPSY stereo bx, unsure which breast, unsure how long ago Medical History Medical History Date Comments Breast cancer (HCC) 1995 left breast ca w radiation/chemo Hypercholesteremia Hypertension Heart attack (HCC) Heart valve problem Dizzy Cardiac rhythm disturbance Gallstones Asthma Anemia Bladder infection Breast cancer (HCC) History of radiation therapy 1995 lef t History of chemotherapy 1996 left [place] ast cancer Family History Medical History Relation Name Comments Heart failure Father Breast cancer Maternal cousin Cancer Mother Ovarian cancer Neg Hx Thyroid cancer Neg Hx Relation Name Status Comments Cousin Father (Age 36) Maternal cousin Mother (Age 68) Social History Tobacco Use Types Packs/Day Years Used Date Smoking Tobacco: Never Smokeless Tobacco: Never Personal Safety Answer Date Recorded Getting School Help Needed Not on file 06/02 Comments Unknown Sex and Gender Information Value Date Recorded Sex Assigned at Not on file Legal Sex Female 2:07 AM FLATWORK TIER Gender Identity Not on file Sexual Orientation Not on file Obstetrics History Para Term AB IAB SAB Ectopic Multiple Livin g Live Births 2 2 2 Date Outcome GA Total Labor Labor/2nd/3rd Weight Sex Type Anes PTL [place] A1 A5 Name Clin Term Term Last Filed Vital Signs Vital Sign Reading Time Taken Comments Blood Pressure 106/64 05/26/2020 12:15 PM FLATWORK TIER Pulse 69 05/26/2020 12:15 PM FLATWORK TIER Temperature 35.4 C (95.7 F) 06/07/2017 1:55 PM FLATWORK TIER Respiratory Rate - - Oxygen Saturation 97% 05/26/2020 12:15 PM FLATWORK TIER Inhaled Oxygen Concentration - - Weight 87 kg (191 lb 12.8 oz) 05/26/2020 12:15 P M FLATWORK TIER Height 155.6 cm (5' 1.25 ) 11/24/2023 1:53 PM CD T Body Mass Index 36.24 05/26/2020 12:15 PM FLATWORK TIER Plan of Treatment Health Maintenance Due Date Last Done Comments Depression Screening 1945 Fall Risk Assessment 1945 Hepatitis C Screening 1945 Zoster Vaccine (1 of 2) 06/14/1997 06/22/2022, 04/20 Well Visit 65+ 06/14/2012 Covid-19 Vaccine (2023-2 5 season) 2023 03/09/2023, 02/09/2022, 10/14/2021, Additional history exists Influenza Vaccine (#1) 2023 01/02/2018, 2016 Osteoporosis Screening-Bone Density Scan 06/11/2024 06/11/2022 DTaP/Tdap/Td Vaccine (2 - Td or Tdap) 06/22/2032 06/22/2022 Pneumococcal vaccine 65+ Completed 02/09/2022, 11/2020 Breast Cancer Screening-Mammogram Discontinued 11/24/2023, 08/08/2021, 12/07/2016, Additional history exists Procedures Procedure Name Priority Date/Time Associated Diagnosis Comments DIAGNOSTIC MAMMOGRAM BILATERAL W ROMAIN Schedule Routine, Read Routine (OP Routine) 11/24/2023 2:08 PM CDT Nipple discharge from Last 3 Months or Most Recently Relevant to Health Maintenance Results * Diagnostic Mammogram Bilateral W Romain (11/24/2023 2:08 PM CDT) Anatomical Region Laterality Modality Breast Bilateral Mammography 11/24/2023 2:39 PM CDT Impressions 11/24/2023 2:39 PM CDT 1. No suspicious finding on either mammogram or ultrasound (subareolar) to account for the patient's single episode of spontaneous clear right nipple discharge. Clinical follow-up is recommended. Any further evaluation regarding this nipple discharge should be based on clinical grounds. If this discharge reoccurs, MRI breast (without and with IV contrast) could be performed. 2. No suspicious finding in either mammogram or ultrasound to account for the area of chronic intermittent tenderness in the upper inner left breast (10-11 o'clock, 4 to 6 cm from nipple). Clinical follow-up is recommended. Any further evaluation regarding this tenderness should be based on clinical grounds. 3. Expected conservation therapy changes in the left breast have not suspiciously changed mammographically. 4. No new suspicious finding in either breast on mammogram. Monthly self breast physical examination and screening mammogram in one year are recommended. BI-RADS: 2 - Benign. The patient was notified of these findings and recommendations with the time of the examination. Electronically signed by: Laurent Gunn M.D. Narrative 11/24/2023 2:39 PM CDT EXAMINATION: DIAGNOSTIC MAMMOGRAM BILATERAL W ROMAIN, US BREAST BILATERAL LIMITED ORDERING HEALTHCARE PROVIDER: CIRO NGUYEN HISTORY: 78-year-old female presents for evaluation of a single episode of spontaneous clear right nipple discharge which occurred 2-3 months ago and for assessment of area in the left breast which has been tender to palpation for greater than one year. History of left breast cancer in 1996 status post conservation therapy. COMPARISON: Mammograms dated 08/08/2021, 12/07/2016, and 12/05/2015 TECHNIQUE: CC and MLO views of the bilateral breasts were obtained with digital technique using breast tomosynthesis with C view. Computer aided detection was utilized. Limited grayscale ultrasound of the bilateral breasts was performed. FINDINGS: BREAST DENSITY: The breasts are heterogeneously dense, which may obscure small masses. MAMMOGRAM FINDINGS: Conservation therapy changes in the left breast have not suspiciously changed. There are multiple benign dystrophic calcifications in the region of the left lumpectomy cavity. Vascular calcifications and other benign calcifications in both breasts have not suspiciously changed. There is an unchanged biopsy marking clip in the right breast. A triangular radiopaque marker has been placed on the upper inner left breast, denoting the area of chronic intermittent tenderness. No abnormality is seen underlying the marker. There is no new suspicious finding in either breast on mammogram. ULTRASOUND FINDINGS: Targeted ultrasound of the subareolar right breast demonstrates no ductal ectasia, solid or cystic mass, or other suspicious finding. Targeted ultrasound of the left breast area of chronic intermittent tenderness 10-11:00, 4 to 6 cm from nipple demonstrates only normal breast tissue with no cystic or solid mass or other suspicious finding. us Ciro Nguyen MD IMG MAMMO PROCEDURES Final R esult from Last 3 Months or Most Recently Relevant to Health Maintenance Insurance [facility] MEDICARE [employer] MEDIC[employer] [place] [address] [employer] [facility] Care Teams Back Joiner Relationship Specialty Start Date End Date Ciro Nguyen MD [address] [place] [address] PCP - General 06/08/16
--- OUTSIDE RECORDS SUMMARY | 2024-05-17 14:18 | XMS_ITS | Clinical Summary ---
Author Organization [facility] Address [address] [place] [address] Care Team Providers Care Supervisor Pipe Manufacture Name Role Phone Ciro Nguyen MD Primary Care Provider [phone] Allergies Active Allergy Reactions Criticality Noted Date Comments Codeine Nausea and Vomiting High 02/14/2012 Latex Rash High 02/14/2012 Tape Hives Medium 06/07/2017 Medications apixaban 5 MG tablet Take 1 tablet (5 mg total) by mouth 2 (two) times a day. 1 Active enalapril 10 MG tablet Take 1 tablet (10 mg total) by mouth daily. Active rosuvastatin 10 MG tablet Take 1 tablet (10 mg total) by mouth daily. Active hydroCHLOROthia zide 25 MG tablet Take 1 tablet (25 mg total) by mouth daily. Active fluticasone propionate 50 MCG/ACT nasal spray 1 spray by Nasal route as needed. Active Glucosamine-Vit D-Hyaluron Acd (GLUCOSAMINE PLUS VITAMIN D3) 1741-2262-1.65 MG-UNIT-MG Tab Take 1 tablet by mouth daily. Active olopatadine 0.1 % ophthalmic solution 1 drop daily. Active albuterol sulfate HFA 108 (90 Base) MCG/ACT inhaler Inhale 2 puffs into the lungs every 4 (four) hours as needed for Wheezing or Shortness of breath. Active vitamin C (ASCORBIC ACID) 250 MG tablet Take 2 tablets (500 mg total) by mouth daily. Active fish oil (OMEGA-3 FATTY ACID) 1000 MG Cap capsule Take 2 capsules (2,000 mg total) by mouth 3 (three) times daily. Active Cyanocobalamin (VITAMIN B-12 OR) Take 325 mg by mouth daily. Active Misc Natural Products (OSTEO BI-FLEX ADV TRIPLE ST OR) Take by mouth 2 (two) times a day. Active atenolol (TENORMIN) 25 MG tablet Take 1 tablet (25 mg total) by mouth 2 (two) times daily. 60 tablet 1 4 Active Active Problems Problem Noted Date Diagnosed Date COVID-19 03/16/2023 Urinary tract infectious disease 01/25/2023 Nonrheumatic mitral valve regurgitation 06/26/19 Mixed hyperlipidemia 06/25/2020 Hypertension 06/25/2020 Permanent atrial fibrillation ([facility]) 05/26/2020 Crush injury, neck 02/23/1980 Benign hypertension Breast cancer ([facility]) CAD (coronary artery disease) Immunizations Name Administration Dates Next Due Fluzone High Dose - >Age 65 (Prefilled Syringe) 01/02/2018,01/14/2017 Hepatitis B (Generic: Adult) 09/11/2002,05/23/19 03,04/16/2002 Influenza Adult (Generic) 01/02/2018,01/14/2017 MODERNA COVID-19 (12+) MRNA, LNP-S, PF, 100 MCG/ 0.5 ML DOSE 06/25/2020,05/29/2020 Family History Medical History Relation Comments [place] Father Heart Attack Maternal Grandfather Heart Attack Maternal Grandmother Hypertension Maternal Grandmother Stroke Maternal Grandmother Brain Cancer Mother CHF Mother COPD Mother Lung Cancer Mother No Known Problems Paternal Grandfather No Known Problems Paternal Grandmother DIVERTICULAR DISEASE Son Relation Status Comments Father (Age 36) Maternal Grandfather (Age 64) Maternal Grandmother (Age 85) Mother (Age 68) Paternal Grandfather Paternal Grandmother Son Social History Tobacco Use Types Packs/Day Years Used Date Smoking Tobacco: Never Smokeless Tobacco: Never Tobacco Cessation:Counseling Given: Not Answered Alcohol Use Standard Drinks/Week Comments Never 0 (1 standard drink = 0.6 oz pur e alcohol) AUDIT-C Answer Date Recorded Q1: How often do you have a drink containing alc ohol? Never 06/30/2020 Average Number of Drinks Not on file 021 Frequency of Binge Drinking Not on file 06/03 Comments No Sex and Gender Information Value Date Recorded Sex Assigned at Not on file Legal Sex Female 4:52 PM CDT Gender Identity Not on file Sexual Orientation Not on file Last Filed Vital Signs Vital Sign Reading Time Taken Comments Blood Pressure 108/68 01/16/2024 10:10 AM CDT Pulse 60 01/16/2024 10:10 AM CDT Temperature 36.1 C (97 F) 01/29/2021 3:30 PM CDT Respiratory Rate 13 06/01/2023 12:4 5 PM DISC RECORDIST Oxygen Saturation 95% 01/16/2024 10: 10 AM CDT Inhaled Oxygen Concentration - - Weight 78.8 kg (173 lb 12.8 oz) 024 10:10 AM CDT Height 152.4 cm (5') 01/16/2024 10:10 AM CDT Body Mass Index 33.94 01/16/2024 10:10 AM CDT Plan of Treatment Upcoming Encounters Date Type Department Care Team (Late st Contact Info) Description 07/16/2024 10:45 AM CDT Office Visit [facility], [facility] [address] [place], [place] [id number] Neelima Tan MD [facility]. [facility] [address] [place] [address] Health Maintenance Due Date Last Done Comments ASCVD Statin 1945 Hepatitis C 06/14/1963 Annual Medicare Wellness Visit 06/14/2012 Dexa Scan (General) 06/14/2012 ASCVD LDL 09/01/2023 08/31/2022, 11/03, 04/24/2020 COVID-19 Vaccine ( season) 2023 03/09/2023, 02/09/2022, 10/14/2021, Additional history exists Influenza Adult (#1) 2024 01/02/2018, 01/02/2018, 01/14/2017, Additional history exists DTaP, Tdap and Td Vaccines (2 - Td or Tdap) 06/22/2032 06/22/2022 Pneumococcal Vaccine: 65+ Years Completed 02/09/2022, 02/09/2021 Zoster Vaccines Completed 06/22/2022, 06/03, 04/20/2022, Additional history exists RSV Immunization or 60+ Years Completed 03/09/2023 Meningococcal B Vaccine Aged Out No l onger eligible based on patient's age to complete this topic Meningococcal Vaccine Aged Out No prasad anjelica eligible based on patient's age to complete this topic RSV Immunizations Under 20 Months Aged Out No longer eligible based on patient's age to complete this topic Procedures Procedure Name Priority Date/Time Associated Diagnosis Comments LIPID PANEL Routine 08/31/2022 from Last 3 Months or Most Recently Relevant to Health Maintenance Results * LIPID PANEL (08/31/2022) CHOLESTEROL 137 TRIGLYCERIDES 148 HDL 46 LDL (CALCULATED) 61 us Default History Genericprovider LABORATORY Final Result from Last 3 Months or Most Recently Relevant to Health Maintenance Insurance [employer]ILRO[employer] MEDICARE [facility] Advance Directives * Full Code (Latest Code Status on File) Date Activated Date Inactivated Comments 01/29/2021 3:37 PM 01/29/2021 8:58 PM * Full Code Date Activated Date Inactivated Comments 12/02/2020 11:17 AM 12/02/2020 6:52 PM Care Teams Supervisor Pipe Manufacture Relationship Specialty Start Date End Date Ciro Nguyen MD [address] [address] PCP - General INTERNAL MEDICINE 06/20/20
--- OUTSIDE RECORDS SUMMARY | 2024-05-17 14:18 | XMS_ITS | Referral Summary ---
Author Organization [facility] Address [address] [place] [address] Care Team Providers Care Swimmer Name Role Phone Ciro Nguyen MD Primary Care Provider [phone] Waylon Montgomery MD Unavailable [phone] [facility],non-owned Affiliates and Associated Physician Practices is amultiple site organization consisting of ambulatory clinics and hospital sitesin [place], [place], [place] and [place]. This disclosure is being madepursuant to the Care Everywhere program and may not contain all information available regarding this patient. Last updated 17.[facility] Allergies Active Allergy Reactions Criticality Noted Date Comments Codeine Nausea and/or Vomiting 02/14/2012 Latex Rash Low 02/14/2012 Medications * Be aware that medications may not be up to date on this document. Alwaysverify current medications with the patient. Medication Sig Dispensed Refills Start Date End Date Status diazepam (VALIUM) 5 MG tablet Take 1 Tab by mouth 3 times daily as needed. 90 Tab 3 02/14/2012 Active diclofenac sodium (VOLTAREN) 75 MG tablet Take 1 Tab by mouth 2 times daily. 60 Tab 5 02/14/2012 Active atenolol (TENORMIN) 100 MG tablet once daily. Active enalapril (VASOTEC) 10 MG tablet once daily. Active rosuvastatin (CRESTOR) 10 MG tablet once daily. Active Active Problems Problem Noted Date Diagnosed Date Cervical spondylosis without myelopathy 02/15/20 12 Social History Tobacco Use Types Packs/Day Years Used Date Smoking Tobacco: Never Smokeless Tobacco: Never Alcohol Use Standard Drinks/Week Comments Yes 0 (1 standard drink = 0.6 oz pur e alcohol) rarely Sex and Gender Information Value Date Recorded Sex Assigned at Not on file Gender Identity Not on file Sexual Orientation Not on file Last Filed Vital Signs Vital Sign Reading Time Taken Comments Blood Pressure 126/80 02/14/2012 1:11 PM LOAN FUNDER Pulse - - Temperature - - Respiratory Rate - - Oxygen Saturation - - Inhaled Oxygen Concentration - - Weight 85.3 kg (188 lb) 02/14/2012 1:11 PM LOAN FUNDER Height 152.4 cm (5') 02/14/2012 1:11 PM LOAN FUNDER Body Mass Index 36.72 02/14/2012 1:11 PM LOAN FUNDER Plan of Treatment Not on file Care Teams Swimmer Relationship Specialty Start Date End Date Ciro Nguyen MD PCP - General Family Medicine 02/09/12 Waylon Montgomery MD Neurological Surgery 02/14/12
--- OUTSIDE RECORDS SUMMARY | 2024-05-17 14:18 | XMS_ITS | Patient Health Summary ---
Author Organization [facility] Address [address] [place] [address] Care Team Providers Care Slot Ambassador Name Role Phone Ciro Nguyen MD Primary Care Provider [phone] Waylon Montgomery MD Unavailable [phone] Note from [facility],non-owned Affiliates and Associated Physician Practices is amultiple site organization consisting of ambulatory clinics and hospital sitesin [place], [place], [place] and [place]. This disclosure is being madepursuant to the Care Everywhere program and may not contain all information available regarding this patient. Last updated 17.[facility] Allergies * Codeine(Nausea and/or Vomiting) * Latex(Rash) -Low Criticality Medications * Be aware that medications may not be up to date on this document. Alwaysverify current medications with the patient. * diazepam (VALIUM) 5 MG tablet(Started 02/14/2012) Take 1 Tab by mouth 3 times daily as needed. 3 refills left * diclofenac sodium (VOLTAREN) 75 MG tablet(Started 02/14/2012) Take 1 Tab by mouth 2 times daily. 5 refills left * atenolol (TENORMIN) 100 MG tablet once daily. * enalapril (VASOTEC) 10 MG tablet once daily. * rosuvastatin (CRESTOR) 10 MG tablet once daily. Active Problems Problem Noted Date Diagnosed Date [...] Comments Blood Pressure 126/80 02/14/2012 1:11 PM MINE DEVELOPMENT ENGINEER Pulse - - Temperature - - Respiratory Rate - - Oxygen Saturation - - Inhaled Oxygen Concentration - - Weight 85.3 kg (188 lb) 02/14/2012 1:11 PM MINE DEVELOPMENT ENGINEER Height 152.4 cm (5') 02/14/2012 1:11 PM MINE DEVELOPMENT ENGINEER Body Mass Index 36.72 02/14/2012 1:11 PM MINE DEVELOPMENT ENGINEER Procedures * MRI CERVICAL SPINE WO CONTRAST(Performed 01/29/2012) Results * MRI SPINE CERVICAL NON CONTRAST (01/29/2012) Anatomical Region Laterality Modality Pelvis Other Waylon Montgomery MD MR ORDERABLES Care Teams Slot Ambassador Relationship Specialty Start Date End Date Ciro Nguyen MD PCP - General Family Medicine 02/09/12 Waylon Montgomery MD Neurological Surgery 02/14/12
--- OUTSIDE RECORDS SUMMARY | 2024-05-17 14:18 | XMS_ITS | Encounter Summary ---
Author Organization [facility] Address [address] [place] [address] Care Team Providers Care Report Manager Name Role Phone Ciro Nguyen MD Primary Care Provider [phone] Encounter Details Date Type Department Care Team (Late Contact Info) Description 01/08/2013 Abstract [facility] CONVERSION [address] [place] [address] , Nikia Gary MD Social History Tobacco Use Types Packs/Day Years Used Date Smoking Tobacco: Never Assessed Comments Unknown Sex and Gender Information Value Date Recorded Sex Assigned at Not on file Legal Sex Female 4:52 PM CDT Gender Identity Not on file Sexual Orientation Not on file documented as of this encounter Plan of Treatment Upcoming Encounters Date Type Department Care Team (Late Contact Info) Description 07/16/2024 10:45 AM CDT Office Visit [facility], [facility] [address] [place] [address] Neelima Tan MD [facility]. [facility] [address] [place], [place] [id number] documented as of this encounter Visit Diagnoses Not on filedocumented in this encounter Care Teams Report Manager Relationship Specialty Start Date End Date Ciro Nguyen MD [address] [place] [address] PCP - General INTERNAL MEDICINE 06/20/20 documented as of this encounter
--- OUTSIDE RECORDS SUMMARY | 2024-05-17 14:18 | XMS_ITS | Clinical Summary ---
Author Organization [facility] [employer] Address [address] [place] [address] Care Team Providers Care Field Automobile Adjuster Name Role Phone Ciro Nguyen MD Primary Care Provider Waylon Montgomery MD Unavailable [phone] Source Comments [facility] [employer],non-owned Affiliates and Associated Physician Practices is amultiple site organization consisting of ambulatory clinics and hospital sitesin [place], [place], [place] and [place]. This disclosure is being madepursuant to the Care Everywhere program and may not contain all information available regarding this patient. Last updated 17.[facility] [employer] Allergies Active Allergy Reactions Criticality Noted Date [...] Comments Blood Pressure 126/80 02/14/2012 1:11 PM VACUUM CLEANER OPERATOR Pulse - - Temperature - - Respiratory Rate - - Oxygen Saturation - - Inhaled Oxygen Concentration - - Weight 85.3 kg (188 lb) 02/14/2012 1:11 PM VACUUM CLEANER OPERATOR Height 152.4 cm (5') 02/14/2012 1:11 PM VACUUM CLEANER OPERATOR Body Mass Index 36.72 02/14/2012 1:11 PM VACUUM CLEANER OPERATOR Plan of Treatment Health Maintenance Due Date Last Done Comments BONE DENSITY TESTING 1945 MEDICARE AWV 12 MONTHS 1945 HEPATITIS C SCREENING 06/10/1965 DTAP/TDAP/TD VACCINES (1 - Tdap) 06/14/1966 PNEUMOCOCCAL VACCINE 50+ (1 of 1 - PCV) 06/14/1997 ZOSTER VACCINE (1 of 2) 06/14/1997 Respiratory Syncytial Virus (RSV) Vaccine Pt: or over 60 yrs (1 - 1-dose 75+ series) 06/14/2022 COVID-19 VACCINE ( - 2023-2 5 season) 2023 INFLUENZA VACCINE (#1) 2023 DEPRESSION SCREENING 04/04/2024 HEPATITIS B VACCINE Aged Out No longe r eligible based on patient's age to complete this topic HIB VACCINE Aged Out No longer eligi ble based on patient's age to complete this topic HPV VACCINE Aged Out No longer eligi ble based on patient's age to complete this topic MENINGOCOCCAL (Group B) VACCINE Aged Out No longer eligible based on patient's age to complete this topic MENINGOCOCCAL VACCINE Aged Out No prasad anjelica eligible based on patient's age to complete this topic Care Teams Field Automobile Adjuster Relationship Specialty Start Date End Date Ciro Nguyen MD PCP - General Family Medicine 02/09/12 Waylon Montgomery MD Neurological Surgery 02/14/12
--- OUTSIDE RECORDS SUMMARY | 2024-05-17 14:18 | XMS_ITS | Data Portability ---
Author Organization [facility] Address [address] [place] [address] Care Team Providers Care Label Drier Name Role Phone MARI NGUYEN Primary Care Provider Unavailabl e Assessment Encounter Date Assessment Date Assessment LastModified by Organization Details LastModified Time 09/15/2023 09/15/2023 Will continue current therapy blood pressure controlled obtain old records continue to follow-up 4 months from now and continue with her current medical therapy [email or web address] Not available 09/17/2023 17:39:11 10/20/2023 10/20/2023 blood work ordered as far as her neck goes we will give her empirically on some Keflex in the outside chance that she has some type of infectious process that is driving this if that does not subside in 3-4 weeks we will consider imaging and further evaluation her other medical problems have been discussed so follow up with me as stated 4 months or sooner if neck issue does not normalize [email or web address] Not available 11/05/2023 13:21:42 01/12/2024 01/12/2024 healthy lifestyle care instructions continue current therapy. She did see the urologist. She will follow up with me in 4 months stay up-to-date on immunizations through the respiratory season [email or web address] Not available 01/14/2024 18:27:40 Plan of Treatment Reminders Order Date Submit Date Provider Last Modified By Organization Details Last Modified Time Details Appointments ANY 15 2024 10:00A Carolyn Nguyen MD Not available Not available Not available ANY 15 2024 09:15A Carolyn Nguyen MD Not available Not available Not available Lab CBC w/ auto diff 2023 024 [email or web address], [address], [address], [place], [address], 11/08/2023 14:25:40 CMP, serum or plasma 2023 024 [facility], [address], [address], [place], [address], 10/27/2023 17:54:28 lipid panel, serum 2023 024 [facility], [address], [address], [place], [address], 11/08/2023 14:25:51 Referral None recorded. Procedures None recorded. Surgeries None recorded. Imaging MAMMO, screening , bilateral 2023 [facility] (Radiology), [address] [place] [address] , [place], [address], 10/05/2023 14:49:24 Medication Orders cephalexi n 500 mg tablet 2023 024 [facility], [address] [facility] [address] [facility] [address] [facility], [place], [address], 01/12/2024 11:48:05 Patient TargetsNo targets recorded. Patient Instructions Encounter Date Encounter Id Patient Instructions Last Modified By Organization Details Last Modified Time 10/03/2023 [id number] A healthy lifestyle: care instructions [email or web address] Not available 10/03/2023 13:42:51 advance care planning: care instructions [email or web address] Not available 10/03/2023 13:42:51 Medicare [facility] Preventive Checklist [email or web address] Not available 10/03/2023 13:42:51 01/12/2024 [id number] A healthy lifestyle: care instructions Not available 01/14/2024 18:28:05 Reason for Referral None Reported. Results Created Date Observation Date Name Description Value Unit Range Abnormal Flag Note LastModifiedBy Organization Detail LastModifiedTime 09/30/19 24 04/15/2022 DEXA, axial skele ton No observ ation record ed. Not Available 2023 15:39:08 11/24/19 24 11/24/2023 MAMMO , diagn ostic , digit al, bilat eral No observ ation record ed. [address] [place], [address], 12/01/2023 11:39:12 11/24/19 24 11/24/2023 US, breas t, unila teral No observ ation record ed. [address] [place], [address], 12/01/2023 11:39:13 01/16/20 24 01/16/2024 XR, hand, 3 or more view No observ ation record ed. [address], [place], [address], 01/17/2024 12:27:41 Result Notes None recorded. Problems Name Problem SNOMED Code Status Onset Date Resolution Date Notes Provider Name and Address Organization Details Recorded Time Essential hypertension 49244800 Active 2023 Mari Nguyen MD Attn: Lionel arreola,[address] [facility], [place], [address], [place] [facility] 4 16:45:54 Hyperlipidemia 31338375 Active 2023 Mari Nguyen MD Attn: Lionel arreola,[address] [facility], [place], [address], [place] [facility] 4 16:45:55 Atrial fibrillation 00222091 Active 2023 Mari Nguyen MD Attn: Lionel arreola,[address] [facility], [place], [address], [place] [facility] 4 16:46:03 History of malignant neoplasm of breast 525118689 Active 2023 Mari Nguyen MD Attn: Lionel arreola,[address] [facility], [place], [address], [place] [facility] 4 17:38:39 Depressive disorder 45334583 Active 2024 Andres Franklin MA null, [facility] 5 12:13:12 Low back pain 760999827 Active 2024 Andres Franklin MA eber, [facility] 5 12:13:12 Problem Notes None recorded. Procedures Surgical History Date Name Laterality Status Provider Name and Address Organization Details Recorded Time Appendectomy completed Carmen Zhang MA [facility] 06/09/2023 13:14:00 Tonsillectomy completed Carmen Zhang MA [facility] 06/09/2023 13:14:08 Mastectomy completed Carmen Zhang MA [facility] 06/09/2023 13:14:16 Total hysterectomy completed Sylvie Zhang MA [facility] 06/09/2023 13:14:24 Breast Surgery completed Carmen Zhang MA [facility] 06/09/2023 13:14:32 Imaging Results Imaging Date Name Status LastModified by Organiz ation Details LastModified Time 04/15/2022 DEXA, axial skeleton completed [facility] Information not available 09/30/2023 15:39:08 11/24/2023 MAMMO, diagnostic, digital, bilateral completed [address] [place], [address], 12/01/2023 11:39:12 11/24/2023 US, breast, unilateral completed [address] [place], [address], 12/01/2023 11:39:13 01/16/2024 XR, hand, 3 or more view completed [address], [address], 01/17/2024 12:27:41 Procedure Notes None recorded. Medical Equipment None Reported. Allergies Allergen ID Allergen Name Allergen Category Reaction Reaction Severity Criticality Documentation Date Start Date Code Code System Note Provider Name and Address Organization Details Recorded Time 327807 codeine medicatio n Not available Not available Not available 06/09/2023 2670 RxNorm Not Available Not Available Not Available 563956 latex environme nt,medica tion Not available Not available Not available 06/09/2023 47249 91 RxNorm Not Available Not Available Not Available Medications Name Sig Start Date Stop Date Status Note LastModified by Organization Details LastModified Time enalapril maleate 10 mg tablet TAKE 1 TABLET BY MOUTH ONCE DAILY active Not Available Not Available No t Available prednisone 20 mg tablet TAKE 2 TABLETS BY MOUTH ONCE DAILY FOR 5 DAYS 06/08 completed Not Available Not Available Not Available atenolol 25 mg tablet TAKE 1 TABLET BY MOUTH TWICE DAILY active Not Available Not Available No t Available ciprofloxac in 500 mg tablet TAKE 1 TABLET BY MOUTH TWICE DAILY active Not Available Not Available No t Available cephalexin 500 mg capsule TAKE 1 CAPSULE BY MOUTH THREE TIMES DAILY FOR 10 DAYS 01/11 completed Not Available Not Available Not Available cephalexin 500 mg tablet Take 1 tablet 3 times a day by oral route for 10 days. 01/11 completed Not Available Not Available Not Available hydrochloro thiazide 25 mg tablet TAKE 1 TABLET BY MOUTH ONCE DAILY active Not Available Not Available No t Available clobetasol 0.05 % topical ointment APPLY THIN LAYER TOPICALLY TO AFFECTED AREA TWICE DAILY active Not Available Not Available No t Available albuterol sulfate HFA 90 mcg/actuati on aerosol inhaler INHALE 2 PUFFS BY MOUTH EVERY 4 TO 6 HOURS NEEDED active Not Available Not Available No t Available Zoloft 25 mg tablet Take 1 tablet every day by oral route. 2024 active Not Available Not Available Not Avai lable cefdinir 300 mg capsule TAKE 1 CAPSULE BY MOUTH TWICE DAILY 01/11 completed Not Available Not Available Not Available doxycycline hyclate 100 mg tablet TAKE 1 TABLET BY MOUTH TWICE DAILY FOR 7 DAYS 06/08 completed Not Available Not Available Not Available rosuvastati n 10 mg tablet TAKE 1 TABLET BY MOUTH ONCE DAILY active Not Available Not Available No t Available nitrofurant oin monohydrate /macrocryst als 100 mg capsule TAKE 1 CAPSULE BY MOUTH EVERY 12 HOURS 01/11 completed Not Available Not Available Not Available melatonin active Not Available Not Jannet ilable Not Available Eliquis 5 mg tablet TAKE 1 TABLET BY MOUTH TWICE DAILY active Not Available Not Available No t Available omega 3 1,000 mg-dha 250 mg-epa 750 mg/5 mL oral liquid Take by oral route. active Not Available Not Available No t Available Paxlovid 300 mg (150 mg x 2)-100 mg tablets in a dose pack 06/08 completed Not Available Not Available Not Available Xdemvy 0.25 % eye drops INSTILL 1 DROP BOTH EYES TWICE DAILY active Not Available Not Available No t Available Vitals Date Recorded Body height Body mass index (BMI) Body weight Heart rate Oxygen saturation Oxygen saturation in Arterial blood by Pulse oximetry Systolic blood pressure Diastolic blood pressure Provider Name and Address Organization Details Last Updated DateTime 4 155.58 cm 32.5 kg/m2 73497.9 2 g 61 /min 99 % 99 % 118 mm[Hg] 74 mm[Hg] Skyla Ansari MA [facility] 4 12:01:39 Date Recorded Body height Body mass index (BMI) Body weight Heart rate Oxygen saturation Oxygen saturation in Arterial blood by Pulse oximetry Pain severity - 0-10 verbal numeric rating [Score] - Reported Systolic blood pressure Diastolic blood pressure Provider Name and Address Organization Details Last Updated DateTime 4 155.58 cm 32.4 kg/m2 37357.4 8 g 60 /min 96 % 96 % 0 108 mm[Hg] 68 mm[Hg] Darleen Freeman [facility] 4 12:09:34 Date Recorded Body height Body mass index (BMI) Body weight Heart rate Oxygen saturation Oxygen saturation in Arterial blood by Pulse oximetry Systolic blood pressure Diastolic blood pressure Provider Name and Address Organization Details Last Updated DateTime 4 155.58 cm 31.1 kg/m2 98691.3 3 g 67 /min 97 % 97 % 120 mm[Hg] 62 mm[Hg] Karen Fontenot MA [facility] 4 11:43:31 Date Recorded Body height Body mass index (BMI) Body weight Heart rate Oxygen saturation Oxygen saturation in Arterial blood by Pulse oximetry Systolic blood pressure Diastolic blood pressure Provider Name and Address Organization Details Last Updated DateTime 4 155.58 cm 32.4 kg/m2 52275.1 2 g 65 /min 95 % 95 % 106 mm[Hg] 74 mm[Hg] Laura Villavicencio MA [facility] 4 11:38:38 Date Recorded Body height Body mass index (BMI) Body weight Heart rate Oxygen saturation Oxygen saturation in Arterial blood by Pulse oximetry Systolic blood pressure Diastolic blood pressure Provider Name and Address Organization Details Last Updated DateTime 5 155.58 cm 33.7 kg/m2 33882.6 3 g 80 /min 100 % 100 % 134 mm[Hg] 86 mm[Hg] Marcie Hughes MA [facility] 5 11:19:56 Social History Question Answer Notes LastModified by Organization Details LastModified Time Tobacco Smoking Status Never Smoker Carmen Zhang MA null, [facility] 06/09/2023 13:13:22 Do You Have An Advance Directive? No Information not available 10/03/2023 What Is Your Level Of Alcohol Consumption? None Information not available 06/09/2023 Are You Blind Or Do You Have Difficulty Seeing? Yes Glasses, Cataract In Left Eye Information not available 10/03/2023 What Is Your Level Of Caffeine Consumption? None Information not available 06/09/2023 In The 14 Days Before Symptom Onset, Have You Had Close Contact With A Laboratory-confi rmed COVID-19 While That Case Was Ill? No Information not available 01/12/2024 In The 14 Days Before Symptom Onset, Have You Had Close Contact With A Person Who Is Under Investigation For COVID-19 While That Person Was Ill? No Information not available 01/12/2024 Have You Been To An Area Known To Be High Risk For COVID-19? No Information not available 01/12/2024 Are You Currently Employed? No Information not available 10/03/2023 Are You Deaf Or Do You Have Serious Difficulty Hearing? No Information not available 06/09/2023 What Type Of Diet Are You Following? SPECIFIC Patient Stated She Loosely Follows A Mediterranean And Vegan Diet. Information not available 10/03/2023 What Is The Highest Grade Or Level Of School You Have Completed Or The Highest Degree You Have Received? [id number] Information not available 10/03/2023 Are There Any Guns Present In Your Home? No Information not available 06/09/2023 In The Past 7 Days, How Many Days Did You Exercise? 2 Information not available 10/03/2023 On The Days When You Exercised, How Long Did You Exercise Each Day (in Minutes)? 45 Information not available 10/03/2023 In The Past 7 Days, How Much Pain Have You [place]? Some Information not available 10/03/2023 In General, Would You Say You Health Is: Fair Information not available 10/03/2023 How Would You Describe The Condition Of Your Mouth And Teeth- Including False Teeth Or Dentures? Fair Information not available 10/03/2023 Each Night, How Many Hours Of Sleep Do You Get? 6 Information not available 10/03/2023 Has Anyone Ever Told You That You Snore? Yes Information not available 10/03/2023 In The Past 7 Days, How Often Have You [place] Sleepy In The Daytime? Usually Information not available 10/03/2023 # Alcohol Drinks Per Week 0 Information not available 10/03/2023 What Was The Date Of Your Most Recent Tobacco Screening? 05/17/2024 Information not available 05/17/2024 What Is Your Relationship Status? Information not available 06/09/2023 Do You Use Your Seat Belt Or Car Seat Routinely? Yes Information not available 06/09/2023 Do You Have Smoke And Carbon Monoxide Detectors In Your Home? Yes Information not available 06/09/2023 Do You Feel Stressed (tense, Restless, Nervous, Or Anxious, Or Unable To Sleep At Night)? [id number] Information not available 10/03/2023 Do You Use Any Illicit Or Recreational Drugs? No Information not available 06/09/2023 Do You Use Sunscreen Routinely? No Information not available 06/09/2023 Has Tobacco Cessation Counseling Been Provided? No Information not available 06/09/2023 Do You Or Have You Ever Used Any Other Forms Of Tobacco Or Nicotine? No Information not available 06/09/2023 Sex: Female Functional Status Question Answer Note LastModified by Organizat ion Details LastModified Time Are you able to care for yourself? Yes Information not available 06/09/2023 What is your exercise level? Occasional twice weekly Information not available 10/03/2023 Mental Status None recorded. Family History Relationship Description Onset Age of this Age Resolved Age Notes LastModified by Organization Details LastModified Time Mother Heart disease [email or web address] Not available 10/2023 13:12:26 Mother Depressive disorder [email or web address] Not available 10/2023 13:12:47 Father Hypertensive disorder [email or web address] Not available 10/2023 13:12:33 Medical History Condition Response Coronary Artery Disease N Other N High Blood Pressure Y Atrial Fibrillation Y Thyroid Problems N Kidney or Bladder Problems Y Blood Clots Y COPD N Depression N GI Problems Y Have you had a mammogram in the last yea r? N Skin Problems N Anemia Y Heart Attack (OK) Y Anxiety Disorder N Diabetes N Muscle, Joint, or Bone Problems N Seizures/Epilepsy N Have you had a colonoscopy in the last 1 0 years? Y Acid Reflux (GERD) N Cancer N Stroke N Asthma N Allergies Y Have you had a PSA blood test in the las t year? N High Cholesterol Y Hepatitis N Liver Disease N Headaches N Heart Failure N Osteoporosis N Gynecological History Statement/Question Response If Post Menopausal, Age at Menopause Obstetrics History GPAL:G 0 P 0 0 0 0 Immunizations Vaccine Type Date Status Note Provider Nam e and Address Organization Details Recorded Time zoster recombinant 3 completed [place], [place] [facility] 09/15/2023 11:58:55 zoster recombinant 3 completed [place] [facility] 09/15/2023 11:58:55 COVID-19, mRNA, LNP-S, PF, 100 mcg/0.5mL dose or 50 mcg/0.25mL dose 2 completed [place] [facility] 09/15/2023 11:58:55 COVID-19, mRNA, LNP-S, PF, 100 mcg/0.5mL dose or 50 mcg/0.25mL dose 1 completed [place] [facility] 09/15/2023 11:58:55 COVID-19, mRNA, LNP-S, bivalent, PF, 50 mcg/0.5 mL or 25mcg/0.25 mL dose 2 L[place], [place] [facility] 09/15/2023 11:58:55 RSV, recombinant, protein subunit RSVpreF, adjuvant reconstituted, 0.5 mL, PF 3 completed [place] [facility] 09/15/2023 11:58:55 COVID-19, mRNA, LNP-S, PF, 50 mcg/0.5 mL 3 [place] [facility] 09/15/2023 11:58:55 pneumococcal polysaccharide PPV23 2 completed [place] [facility] 09/15/2023 11:58:55 Tdap 3 completed [place] [facility] 09/15/2023 11:58:55 Pneumococcal conjugate PCV 13 1 [place] [facility] 09/15/2023 11:58:55 Influenza, high-dose, trivalent, PF 8 completed [place] [facility] 09/15/2023 11:58:55 Influenza, high-dose, trivalent, PF 7 completed [place] [facility] 09/15/2023 11:58:55 Hep B, adult 3 completed [place] [facility] 09/15/2023 11:58:55 Hep B, adult 3 completed [place] [facility] 09/15/2023 11:58:55 Hep B, adult 3 completed [place] [facility] 09/15/2023 11:58:55 COVID-19, mRNA, LNP-S, PF, 50 mcg/0.5 mL 4 [place] [facility] 05/17/2024 11:10:49 COVID-19, mRNA, LNP-S, PF, 100 mcg/0.5mL dose or 50 mcg/0.25mL dose 02/25/202 1 completed Saray Root LPN [place], [place] [facility] 05/29/2020 09:00:12 COVID-19, mRNA, LNP-S, PF, 100 mcg/0.5mL dose or 50 mcg/0.25mL dose completed Julia August [place], [place] [facility] 06/25/2020 16:19:39 Past Encounters Encounter ID Performer Location Encounter Start Date Encounter Closed Date Diagnosis/Indication Diagnosis SNOMED-CT Code Diagnosis ICD10 Code Diagnosis Note [id number] KATIE Cruz 14 IM [address] [facility] [place] [address] 05/28/2020 16:07:18 05/29/2020 07:37:01 Administration of SARS-CoV-2 antigen vaccine 480076082 Z23 [id number] KATIE Cruz 14 IM [address] [facility] [place] [address] 06/25/2020 16:05:07 06/26/2020 15:53:56 Administration of SARS-CoV-2 antigen vaccine 279113518 Z23 [id number] Mari Nguyen MD [facility] (Adult Med) [address] [place] [address] 06/09/2023 12:07:01 06/09/2023 14:16:38 Essential hypertension 17911137 I10 Hyperlipidemia 15235005 E78.5 Dysuria 58762001 R30.0 Atrial fibrillation 4943 6004 I48.91 Long-term drug therapy 428671263 Z79.899 Vitamin D below reference range 754859737 E55.9 Coronary atherosclerosis 885305654 I25.10 History of malignant neoplasm of breast 621629469 Z85.3 [id number] Mair Nguyen MD [facility] [employer] [address] [place] [address] 09/15/2023 11:50:54 09/15/2023 12:36:32 Essential hypertension 17469721 I10 Hyperlipidemia 79084266 E78.5 History of malignant neoplasm of breast 551790446 Z85.3 Atrial fibrillation 4943 6004 I48.91 [id number] Mari Nguyen MD [facility] [place] [address] [place] [address] 10/03/2023 11:40:18 10/03/2023 12:33:30 Adult health examination 227822420 Z00.00 Health Risk Assessment collected and reviewed Screening mammography 24 607278 Z12.31 Obesity 639072494 E66.8 [id number] Mari Nguyen MD [facility] [place] [address] [place] [address] 10/20/2023 11:36:23 10/20/2023 12:31:36 Essential hypertension 98483380 I10 Atrial fibrillation 4943 6004 I48.91 Hyperlipidemia 03688214 E78.5 [id number] Mari Nguyen MD [facility] [place] [address] [place] [address] 01/12/2024 10:45:28 01/12/2024 12:28:36 Obesity 111603929 E66.9 Essential hypertension 28342613 I10 Atrial fibrillation 4943 6004 I48.91 Hyperlipidemia 51987284 E78.5 [id number] Anrdes Franklin MA [facility] [place] [address] [place] [address] 05/17/2024 10:55:09 05/17/2024 12:15:27 Body mass index 30+ - obesity 418893891 Z68.33 Essential hypertension 99948435 I10 Depressive disorder 3548 9007 F32.A Low back pain 655731608 M54.50 Health Concerns Section Related Observation LastModified by Organization Detai ls LastModified Time None Recorded Concern Status LastModified by Organization Details LastModified Time None Recorded Advance Directives Directive N: Payers Encounter Date Sequence Insurance Name Policy Number Policy Allen Covered Member ID Allen Member ID Guarantor Name 09/15/2023 1 [place] Laurel Sandy [id number] 1 Laurel Sandy 09/15/2023 2 [employer] [place] [employer] (MEDICARE SUPPLEMENT) Laurel Sandy [id number] Laurel Sandy 10/03/2023 2 [employer] [place] [employer] (MEDICARE SUPPLEMENT) Laurel Sandy [id number] Laurel Sandy 10/03/2023 1 MEDICARE B: [employer] MEDICARE Laurel Sandy [id number] Laurel Sandy 10/20/2023 2 [employer] [place] [employer] (MEDICARE SUPPLEMENT) Laurel Sandy [id number] Laurel Sandy 10/20/2023 1 MEDICARE B: [employer] MEDICARE Laurel Sandy [id number] 1 Laurel Sandy 01/12/2024 2 [employer] [place] [employer] (MEDICARE SUPPLEMENT) Laurel Sandy [id number] Laurel Sandy 01/12/2024 1 MEDICARE B: [employer] MEDICARE Laurel Sandy [id number] 1 Laurel Sandy Notes Date Note Type Note Provider Name and Address Organization Details Recorded Time 09/15/2023 text/html Follow-up of medical problems atrial fibrillation she has been doing fine with statin hypertension no headache or dizziness dyslipidemia taking her rosuvastatin Mari Nguyen MD Attn: [address] [place], [address], [facility] 09/17/2023 17:39:40 10/03/2023 text/html MAW 2Reported bypatient.Diet and Nutrition:healthy diet Fracture Risk:no history of fractures; no sudden unexplained fractures Concentration and Memory:no decreased concentrating ability; no memory lapses or loss; does not forget words Speech/Motor difficulties:no speech difficulties; no difficulty expressing formulated concepts; no difficulty with fine manipulative tasks; no difficulty writing/copying; no slowed reaction time; does not knock things over when trying to pick them up Hearing:loss of hearing in one ear only Vision:worse both distance and near(glasses);incre ased sensitivity to glare;difficulty seeing in bright light Activities of Daily Living:able to bathe with limited or no assistance; able to contol urination and bowels; able to dress with limited or no assistance; able to feed self with limited or no assistance; able to get out of chair or bed with limited or no assistance; able to groom with limited or no assistance; able to toilet with limited or no assistance Instrumental Activities of Daily Living:able to do house work with limited or no assistance; able to grocery shop with limited or no assistance; able to manage medications with limited or no assistance; able to manage money with limited or no assistance; able to prepare meals with limited or no assistance; able to use the phone with limited or no assistance Falls Risk Assessment:no frequent falls while walking; no fall in the past year; no fall since last visit; no dizziness/vertigo Home Safety:no unsafe evaristo hazzards; no unsafe stairs; working smoke/CO detectors; practicing 'safer sex'; no fire arms; has hand bars in the bathroom/shower; good lighting in the home Mari Nguyen MD Attn: [address] [place], [address], [facility] 10/16/2023 20:59:58 10/20/2023 text/html Follow-up of medical problems atrial fibrillation she has been doing fine with statin hypertension no headache or dizziness dyslipidemia taking her rosuvastatin has noticed the somewhat tender knot in her posterior cervical triangle Mari Nguyen MD Attn: [address] [place], [address], [facility] 11/05/2023 13:22:08 01/12/2024 text/html Follow-up of medical problems atrial fibrillation she has been doing fine with statin hypertension no headache or dizziness dyslipidemia taking her medications for cholesterol with no side effects atrial fibrillation no stroke or stroke-like symptoms no heart racing or palpitations Mari Nguyen MD Attn: Accounting[address] [place], [address], [facility] 01/14/2024 18:28:08 OBGyn Episode No OBEpisode recorded.
--- OUTSIDE RECORDS SUMMARY | 2024-05-17 14:18 | XMS_ITS | Encounter Summary ---
Author Organization [facility] Address [address] [place] [address] Care Team Providers Care [employer] Developer Name Role Phone Ciro Nguyen MD Primary Care Provider [phone] Encounter Details Date Type Department Care Team (Late Contact Info) Description 11/27/2020 Abstract [facility], [facility] [address], [place] [id number] Xavier Hayden MA Social History Tobacco Use Types Packs/Day Years Used Date Smoking Tobacco: Never Smokeless Tobacco: Never Alcohol Use Standard Drinks/Week Comments Never 0 (1 standard drink = 0.6 oz pur e alcohol) AUDIT-C Answer Date Recorded Q1: How often do you have a drink containing alc ohol? Never 06/30/2020 Average Number of Drinks Not on file 021 Frequency of Binge Drinking Not on file 06/03 Comments Unknown Sex and Gender Information Value Date Recorded Sex Assigned at Not on file Legal Sex Female 4:52 PM CDT Gender Identity Not on file Sexual Orientation Not on file documented as of this encounter Plan of Treatment Upcoming Encounters Date Type Department Care Team (Late Contact Info) Description 07/16/2024 10:45 AM CDT Office Visit [facility], [facility] [address], [place] [id number] Neelima Tan MD [facility]. [facility] [address] [place] [address] documented as of this encounter Procedures Procedure Name Priority Date/Time Associated Diagnosis Comments COMPREHENSIVE METABOLIC PANEL Routine 08/31/2022 LIPID PANEL Routine 08/31/2022 CBC, MANUAL DIFF Routine 08/31/2022 COMPREHENSIVE METABOLIC PANEL Routine 11/25/2020 LIPID PANEL Routine 11/25/2020 documented in this encounter Results * COMPREHENSIVE METABOLIC PANEL (08/31/2022) SODIUM S/P/B 136 GLUCOSE 83 mg/dL AST 38 BUN 16 CREATININE S/P/B 0.69 0.5 - 1.0 CALCIUM S/P/B 9.1 POTASSIUM S/P/B 4.4 CHLORIDE S/P/B 95 ALT 28 GFR ESTIMATE >60 Default History Genericprovider LABORATORY Final Result * LIPID PANEL (08/31/2022) CHOLESTEROL 137 TRIGLYCERIDES 148 HDL 46 LDL (CALCULATED) 61 Default History Genericprovider LABORATORY Final Result * CBC, MANUAL DIFF (08/31/2022) WBC 6.7 HGB 14.3 HCT 43.3 PLT 231 Default History Genericprovider LABORATORY Final Result * LIPID PANEL (11/25/2020) CHOLESTEROL 128 HDL 51 TRIGLYCERIDES 135 LDL (CALCULATED) 50 11/25/2020 Doc [facility] Abstract LABORATORY Final Result * COMPREHENSIVE METABOLIC PANEL (11/25/2020) SODIUM S/P/B 134 137 - 145 POTASSIUM S/P/B 4.3 CO2 29 CHLORIDE S/P/B 99 GLUCOSE 82 mg/dL CALCIUM S/P/B 9.3 BUN 17 CREATININE S/P/B 0.84 0.5 - 1.0 EGFR NON-AFR. AMER. >60 <=90 ALKALINE PHOSPHATASE S/P/B 79 ALT 44 AST 53 BILIRUBIN TOTAL S/P/B 0.70 ALBUMIN S/P/B 4.2 3.5 - 5.0 TOTAL PROTEIN S/P/B 7.1 GLOBULIN 2.9 11/25/2020 us Doc [facility] LABORATORY Final Result documented in this encounter Visit Diagnoses Not on filedocumented in this encounter Care Teams [employer] Relationship Specialty Start Date End Date Ciro Nguyen MD [address] [address] PCP - General INTERNAL MEDICINE 06/20/20 documented as of this encounter
--- OUTSIDE RECORDS SUMMARY | 2024-05-17 14:19 | XMS_ITS | Data Portability ---
Author Organization [facility] [employer], Main Office Address [address] [place] [address] Care Team Providers Care Supervisor Malted Milk Name Role Phone MARI NGUYEN Primary Care Provider Assessment Encounter Date Assessment Date Assessment LastModified by Organization Details LastModified Time 07/27/2022 07/27/2022 Chest x-ray prednisone 40 mg daily x5 days doxycycline 100 b.i.d. 7 days albuterol inhaler if that chest pain recurs and lasts more than 20 minutes go to the emergency room otherwise she will let me know in a few days how she is feeling Not available 07/27/2022 22:49:01 08/12/2022 08/12/2022 Asthmatic bronchitis all good problems with the assessment and plan have been discussed blood work been ordered will follow-up with me in 4 months [email or web address] Not available 08/12/2022 13:45:50 12/09/2022 12/09/2022 Continue current therapy follow-up in 4 months [email or web address] Not available 12/27/2022 22:41:47 Plan of Treatment Reminders Order Date Submit Date Provider Last Modified By Organization Details Last Modified Time Details Appointments None recorded. Lab CMP, serum or plasma 2022 023 [facility]), [address] [place], [address], 19:45:47 CBC w/ auto diff 2022 023 [facility]), [address] [place], [address], 19:34:51 lipid panel, serum 2022 023 [facility]), [address] [facility], [place], [address], 19:45:57 Referral None recorded. Procedures None recorded. Surgeries None recorded. Imaging electrocard iogram 2022 023 [email or web address] [facility] Internal Med [address], [place], [address], 22:49:14 XR, chest, 2 view 2022 023 [email or web address] Not available 14:18:40 Medication Orders prednisone 20 mg tablet [address] [facility], [address], [address], 11:00:22 doxycycline hyclate 100 mg tablet [address] [facility], [address], [address], 11:00:12 albuterol sulfate HFA 90 mcg/actuati on aerosol inhaler 2022 023 [email or web address] [facility], [address], [address], 14:18:40 Patient TargetsNo targets recorded. Patient InstructionsNo instructions recorded. Reason for Referral None Reported. Results Created Date Observation Date Name Description Value Unit Range Abnormal Flag Note LastModifiedBy Organization Detail LastModifiedTime 09/01/19 23 08/31/2022 CBC/C OMPLE TE BLD COUNT W/DIF F white blood cells 6.7 x10'3 /uL 4.2-10 .8 Not Available [facility] (Lab) [address] [place], [address], 08/31/2022 19:34:51 09/01/19 23 08/31/2022 CBC/C OMPLE TE BLD COUNT W/DIF F red blood cells 4.72 x10'6 /uL 3.80-5 .20 Not Available [facility] (Lab) [address] [place], [address], 08/31/2022 19:34:51 09/01/19 23 08/31/2022 CBC/C OMPLE TE BLD COUNT W/DIF F hemoglobin 14.3 g/dL 12.0-1 5.6 Not Available [facility] (Lab) [address] [place], [address], 08/31/2022 19:34:51 09/01/19 23 08/31/2022 CBC/C OMPLE TE BLD COUNT W/DIF F hematocrit 43.3 % 35.7-4 5.7 Not Available [facility] (Lab) [address] [place], [address], 08/31/2022 19:34:51 09/01/19 23 08/31/2022 CBC/C OMPLE TE BLD COUNT W/DIF F mean red cell volume 91.7 fL 82.0-9 9.0 Not Available [facility] (Lab) [address] [place], [address], 08/31/2022 19:34:51 09/01/19 23 08/31/2022 CBC/C OMPLE TE BLD COUNT W/DIF F mean red cell hemoglobin 30.3 pg 27.0-3 3.0 Not Available [facility] (Lab) [address] [place], [address], 08/31/2022 19:34:51 09/01/19 23 08/31/2022 CBC/C OMPLE TE BLD COUNT W/DIF F mean RBC HGB concentratio n 33.0 g/dL 31.0-3 6.0 Not Available [facility] (Lab) [address] [place], [address], 08/31/2022 19:34:51 09/01/19 23 08/31/2022 CBC/C OMPLE TE BLD COUNT W/DIF F red cell distribution width 14.5 % 11.8-1 5.5 Not Available [facility] (Lab) [address] [place], [address], 08/31/2022 19:34:51 09/01/19 23 08/31/2022 CBC/C OMPLE TE BLD COUNT W/DIF F platelets 231 x10'3 /uL 150-40 0 Not Available [facility] (Lab) [address] [place], [address], 08/31/2022 19:34:51 09/01/19 23 08/31/2022 CBC/C OMPLE TE BLD COUNT W/DIF F mean platelet volume 11.1 fL 9.0-12 .4 Not Available [facility] (Lab) [address] [place], [address], 08/31/2022 19:34:51 09/01/19 23 08/31/2022 CBC/C OMPLE TE BLD COUNT W/DIF F neutrophils 52.9 % 39.0-7 2.0 Not Available [facility] (Lab) [address] [place], [address], 08/31/2022 19:34:51 09/01/19 23 08/31/2022 CBC/C OMPLE TE BLD COUNT W/DIF F lymphocytes 30.4 % 16.0-4 7.0 Not Available [facility] (Lab) [address] [place], [address], 08/31/2022 19:34:51 09/01/19 23 08/31/2022 CBC/C OMPLE TE BLD COUNT W/DIF F monocytes 13.9 % 5.0-12 .0 high Not Available [facility] (Lab) [address] [place], [address], 08/31/2022 19:34:51 09/01/19 23 08/31/2022 CBC/C OMPLE TE BLD COUNT W/DIF F eosinophils 1.9 % 1.0-7. 0 Not Available [facility] (Lab) [address] [place], [address], 08/31/2022 19:34:51 09/01/19 23 08/31/2022 CBC/C OMPLE TE BLD COUNT W/DIF F basophils 0.6 % 0.0-2. 0 Not Available [facility] (Lab) [address] [place], [address], 08/31/2022 19:34:51 09/01/19 23 08/31/2022 CBC/C OMPLE TE BLD COUNT W/DIF F immature granulocytes 0.3 % 0.00-0 .50 Not Available [facility] (Lab) [address] [place], [address], 08/31/2022 19:34:51 09/01/19 23 08/31/2022 CBC/C OMPLE TE BLD COUNT W/DIF F neutrophils, absolute count 3.54 x10'3 /uL 1.5-8. 0 Not Available [facility] (Lab) [address] [place], [address], 08/31/2022 19:34:51 09/01/19 23 08/31/2022 CBC/C OMPLE TE BLD COUNT W/DIF F lymphocytes, absolute count 2.04 x10'3 /uL 1.07-3 .43 Not Available [facility] (Lab) [address] [place], [address], 08/31/2022 19:34:51 09/01/19 23 08/31/2022 CBC/C OMPLE TE BLD COUNT W/DIF F monocytes, absolute count 0.93 x10'3 /uL 0.29-0 .99 Not Available [facility] (Lab) [address] [place], [address], 08/31/2022 19:34:51 09/01/1908/31/2022 CBC/C OMPLE TE BLD COUNT W/DIF F eosinophils, absolute count 0.13 x10'3 /uL 0.02-0 .53 Not Available [facility] (Lab) [address] [place], [address], 08/31/2022 19:34:51 09/01/19 23 08/31/2022 CBC/C OMPLE TE BLD COUNT W/DIF F basophils, absolute count 0.04 x10'3 /uL 0.01-0 .08 Not Available [facility] (Lab) [address] [place], [address], 08/31/2022 19:34:51 09/01/19 23 08/31/2022 CBC/C OMPLE TE BLD COUNT W/DIF F immature granulocytes ,absolute 0.02 x10'3 /uL 0.00-0 .05 Not Available [facility] (Lab) [address] [place], [address], 08/31/2022 19:34:51 09/01/19 23 08/31/2022 CBC/C OMPLE TE BLD COUNT W/DIF F nucleated red blood cells 0.0 % -0 Not Available [facility] (Lab) [address] [place], [address], 08/31/2022 19:34:51 09/01/19 23 08/31/2022 CBC/C OMPLE TE BLD COUNT W/DIF F NRBC# 0.00 x10'3 /uL Not Available [facility] (Lab) [address] [place], [address], 08/31/2022 19:34:51 09/01/19 23 08/31/2022 COMPR EHENS APPLE METAB OLIC PANEL sodium 136 mmol/ L 137-14 5 low Not Available [facility] (Lab) [address] [place], [address], 08/31/2022 19:45:47 09/01/19 23 08/31/2022 COMPR EHENS APPLE METAB OLIC PANEL potassium 4.4 mmol/ L 3.5-5. 1 Not Available [facility] (Lab) [address] [place], [address], 08/31/2022 19:45:47 09/01/19 23 08/31/2022 COMPR EHENS APPLE METAB OLIC PANEL chloride 95 mmol/ L 98-107 low Not Available [facility] (Lab) [address] [place], [address], 08/31/2022 19:45:47 09/01/19 23 08/31/2022 COMPR EHENS APPLE METAB OLIC PANEL carbon dioxide 32 mmol/ L 22-30 high Not Available [facility] (Lab) [address] [place], [address], 08/31/2022 19:45:47 09/01/19 23 08/31/2022 COMPR EHENS APPLE METAB OLIC PANEL anion gap 13.4 mmol/ L 14-22 low Not Available [facility] (Lab) [address] [place], [address], 08/31/2022 19:45:47 09/01/19 23 08/31/2022 COMPR EHENS APPLE METAB OLIC PANEL glucose 83 mg/dL 70-99 Not Available [facility] (Lab) [address] [place], [address], 08/31/2022 19:45:47 09/01/19 23 08/31/2022 COMPR EHENS APPLE METAB OLIC PANEL BUN 16 mg/dL 8-19 Not Available [facility] (Lab) [address] [place], [address], 08/31/2022 19:45:47 09/01/1908/31/2022 COMPR EHENS APPLE METAB OLIC PANEL creatinine 0.69 mg/dL 0.66-1 .25 Not Available [facility] (Lab) [address] [place], [address], 08/31/2022 19:45:47 09/01/19 23 08/31/2022 COMPR EHENS APPLE METAB OLIC PANEL GFR >60 Refer ence Range : [place] ge GFR Healt hy Adult : >60 mL/mi n/1.7 3 m2 Chron ic Kidne y Disea se: 15-60 mL/mi n/1.7 3 m2 Kidne y Failu re: <15/m L/min /1.73 m2 www.n iddk. nih.g ov The MDRD study equat ion has not been valid ated in child denia <18 years of age; pregn ant women ; the elder ly >85 years of age; or in some racia l or ethni c subgr oups, such as Hispa nics. Outsi de the valid ated kristen eters , estim ated GFR is less accur ate, requi ring clini julian judgm ent on a case- by-ca se basis . Clini julian inter preta tion for other races and ages must be made by the clini tray. The MDRD study equat ion has not been valid ated for the evalu ation of serum creat inine relat ed to nutri kia l statu s or medic ation usage . For perso ns <18 years of age, a pedia tric GFR calcu lator is avail able on the [facility] websi te: https ://karen w.kid mike.o rg/pr ofess ional s/kdo qi/gf r_cal culat or Not Available [facility] (Lab) [address] [place], [address], 08/31/2022 19:45:47 09/01/1908/31/2022 COMPR EHENS APPLE METAB OLIC PANEL alkaline phosphatase 69 U/L 38-126 Not Available [facility] (Lab) [address] [place], [address], 08/31/2022 19:45:47 09/01/19 23 08/31/2022 COMPR EHENS APPLE METAB OLIC PANEL alanine aminotransfe rase 28 U/L 0-35 Not Available [facility] (Lab) [address] [place], [address], 08/31/2022 19:45:47 09/01/19 23 08/31/2022 COMPR EHENS APPLE METAB OLIC PANEL aspartate aminotransfe rase 38 U/L 15-37 high Not Available [facility] (Lab) [address] [place], [address], 08/31/2022 19:45:47 09/01/19 23 08/31/2022 COMPR EHENS APPLE METAB OLIC PANEL bilirubin, total 0.80 mg/dL 0.20-1 .30 Not Available [facility] (Lab) [address] [place], [address], 08/31/2022 19:45:47 09/01/19 23 08/31/2022 COMPR EHENS APPLE METAB OLIC PANEL calcium 9.1 mg/dL 8.4-10 .2 Not Available [facility] (Lab) [address] [place], [address], 08/31/2022 19:45:47 09/01/19 23 08/31/2022 COMPR EHENS APPLE METAB OLIC PANEL total protein 7.1 g/dL 6.3-8. 2 Not Available [facility] (Lab) [address] [place], [address], 08/31/2022 19:45:47 09/01/19 23 08/31/2022 COMPR EHENS APPLE METAB OLIC PANEL albumin 3.9 g/dL 3.0-4. 4 Not Available [facility] (Lab) [address] [place], [address], 08/31/2022 19:45:47 09/01/19 23 08/31/2022 COMPR EHENS APPLE METAB OLIC PANEL globulin 3.2 g/dL 2.6-4. 2 Not Available [facility] (Lab) [address] [place], [address], 08/31/2022 19:45:47 09/01/19 23 08/31/2022 COMPR EHENS APPLE METAB OLIC PANEL A/G ratio 1.2 ratio 1.0-2. 0 Not Available [facility] (Lab) [address] [place], [address], 08/31/2022 19:45:47 09/01/1908/31/2022 LIPID PANEL cholesterol 137 mg/dL 140-19 9 low NIH NISH NSUS RECOM MENDA TION FOR JOY STERO L: ADULT CHILD LOW RISK: <200 <170 BORDE RLINE : <200- 239 ----- HIGH RISK: >240 >200 Not Available [facility] (Lab) [address] [place], [address], 08/31/2022 19:45:57 09/01/1908/31/2022 LIPID PANEL triglyceride s 148 mg/dL 0-150 NIH NISH NSUS REPOR T RECOM MENDA TION FOR TRIGL YCERI WICHO: ADULT CHILD LOW RISK: <150 ----- BODER LINE: 150-1 99 ----- HIGH RISK: >200 ----- Not Available [facility] (Lab) [address] [place], [address], 08/31/2022 19:45:57 09/01/1908/31/2022 LIPID PANEL HDL cholesterol 46 mg/dL 40- Not Available [facility] (Lab) [address] [place], [address], 08/31/2022 19:45:57 09/01/19 23 08/31/2022 LIPID PANEL LDL cholesterol, calculated 61 mg/dL 0-130 NIH NISH NSUS REPOR T RECOM MENDA TIONS FOR LDL: ADULT CHILD LOW RISK <130 <110 (OPTI MAL LDL) <100 ----- BORDE RLINE : 130-1 59 ----- HIGH RISK: >160 >130 A TRIGL YCERI DE RESUL T >400 INVAL IDATE S THE CALCU LATIO N FOR LDL FRACT IONAT ION - THE LDL RESUL T WILL NOT BE REPOR MARCIAL. Not Available [facility] (Lab) [address] [place], [address], 08/31/2022 19:45:57 06/12/19 23 04/15/2022 DEXA, axial skele ton No observ ation record ed. [email or web address] [facility] [address] [place], [address], 08/16/2022 16:10:19 07/28/19 23 XR, chest , 2 view [facility] [address] [place] [address] [phone] Patien t Name: HOLLEY ARRINGTON Access ion #: [id number] Sex: F : 1945 1 Locati on: RA2 Attend ing Physic sally: CHAYO NGUYEN Orderi Physic sally: CHAYO NGUYEN Exam Date: 023 11:56 AM Exam Name: XR CHEST 2V Admitt ing Diagno sis(es ): RADIOL OGY REPORT - FINAL EXAM: XR CHEST 2V HISTOR Y: bronch itis 77-yea r-old female with cough, shortn ess of breath , chest pain, histor y of left-s ided breast cancer status post lumpec ruslan and radiat ion therap y. COMPAR TOVA: Chest x-ray dated 2017. TECHNI QUE: 2 views of the chest were perfor med. FINDIN GS: No pneumo thorax , pulmon deepa edema, pleura l effusi ons, suspic ious lung nodule s, or consol idativ e infilt rates. The heart is not enlarg ed. The aortic arch is calcif ic. No fractu res are identi fied about the bony thorax . 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 Page 1 of 2 [facility] Name: HOLLEY ARRINGTON Access ion #: [id number] Sex: F : 1945 1 Exam Date: 11:56 AM Exam Name: XR CHEST 2V Admitt ing Diagno sis(es ): IMPRES LUI: No acute intrat horaci c proces s. Create d and electr onical ly signed by: Shahab robles MD Signed Date: 12:20 PM (CT) Dictat ed by: Shahab robles MD DD: 12:20 PM (CT) DT: 12:20 PM (CT) Page 2 of 2 [email or web address] [facility] (Imaging) [address] [place], [address], 08/16/2022 16:10:20 07/28/19 elect rocar diogr am No observ ation record ed. [email or web address] [facility] Internal Med [address], [place], [address], 07/27/2022 13:28:54 07/29/19 23 07/27/2022 elect rocar diogr am No observ ation record ed. BARCODE [facility] Internal Med [address], [place], [address], 07/28/2022 10:44:59 05/11/19 24 05/10/2023 CT, brain , w/o contr ast No observ ation record ed. [address], [place], [address], 05/24/2023 12:36:22 Result Notes None recorded. Problems Name Problem SNOMED Code Status Onset Date Resolution Date Notes Provider Name and Address Organization Details Recorded Time Cough 41775433 Active 2022 Not Available [facility] 3 16:53:09 Bronchitis 15436918 Active 2022 Not Available [facility] 3 16:53:09 Chest pain 90314488 Active 2022 Not Available [facility] 3 16:53:09 Urinary tract infectious disease 07768520 Active 2022 ASIA Victor null, [facility] 3 13:32:37 COVID-19 618501713 Active 2022 Marya Rubin RN null, [facility] 3 17:18:13 Benign hypertensi on 58378631 Active Not Available [facility] 3 16:53:09 Impacted cerumen of bilateral ears 0684778904034 108 Active 2021 Not Available [facility] 3 16:53:09 Impacted cerumen in right ear 9917565642467 103 Active 2021 Not Available [facility] 3 16:53:09 Hyperchole sterolemia 63768357 Active Not Available [facility] 3 16:53:09 Constipati on 26819769 Active Not Available [facility] 3 16:53:09 Backache 388614246 Active Not Available [facility] 3 16:53:09 Aching pain 32385961 Active Not Available [facility] 3 16:53:09 Otitis externa 3584633 Active 2021 Not Available [facility] 3 16:53:09 Pain in right foot 9651088768161 07 Active 2019 Not Available [facility] 3 16:53:09 Hypertensi ve disorder 77382670 Active 2016 Not Available [facility] 3 16:53:09 Asthmatic bronchitis 462754840 Active Not Available [facility] 3 16:53:09 Chronic atrial fibrillati on 074426238 Active 2020 Not Available [facility] 3 16:53:09 Acute urinary tract infection 162589372 Active 2021 Not Available [facility] 3 16:53:09 Anxiety 73716282 Active 2020 Not Available [facility] 3 16:53:09 Dysuria 84451225 Active Not Available [facility] 3 16:53:09 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 Please review this document and add these problems to the patient's chart manually as needed. Problem Notes None recorded. Procedures Surgical History Date Name Laterality Status Provider Name and Address Organization Details Recorded Time lumpectomy of left breast completed Not Available [facility] 06/02/2022 04:42:34 biopsy completed Not Available [facility] 04/2022 04:42:34 Imaging Results Imaging Date Name Status LastModified by Organization Details LastModified Time 04/15/2022 DEXA, axial skeleton completed [email or web address] [facility] [address] [place], [address], 08/16/2022 16:10:19 07/27/2022 XR, chest, 2 view completed [email or web address] [facility] (Imaging) [address] [place], [address], 08/16/2022 16:10:20 07/27/2022 electrocardiogram completed [email or web address] [facility] [address], [place], [address], 07/27/2022 13:28:54 07/27/2022 electrocardiogram completed [facility] [address], [place], [address], 07/28/2022 10:44:59 05/10/2023 CT, brain, w/o contrast completed [address], [place], [address], 05/24/2023 12:36:22 Procedure Notes None recorded. Medical Equipment None Reported. Allergies Allergen ID Allergen Name Allergen Category Reaction Reaction Severity Criticality Documentation Date Start Date Code Code System Note Provider Name and Address Organization Details Recorded Time 8560 latex environme nt,medica tion rash Not available Not available 06/02/2022 26017 91 RxNorm Not Available [facility] 3 05:05:57 8561 codeine medicatio n nausea Not available Not available 06/02/2022 2670 RxNorm Not Available [facility] 3 05:05:57 Medications Name Sig Start Date Stop Date Status Note LastModified by Organization Details LastModified Time cyclobenz aprine 10 mg tablet 01/11 completed Not Available Not Available Not Available amoxicill in 500 mg capsule Take 1 capsule 3 times a day by oral route for 7 days. active Not Available Not Available No t Available Levaquin 250 mg tablet Take 1 tablet every day by oral route. 10/10 completed Not Available Not Available Not Available prednison e 10 mg tablet Take 40 mg. daily X5 days active Not Available Not Available No t Available cefuroxim e axetil 250 mg tablet 04/08 completed Not Available Not Available Not Available enalapril maleate 10 mg tablet TAKE 1 TABLET BY MOUTH ONCE DAILY active Not Available Not Available No t Available albuterol sulfate 2.5 mg/3 mL (0.083 %) solution for nebulizat ion Inhale 3 mL 3 times a day by nebuliza tion route. 08/24 completed Not Available Not Available Not Available Pacerone 200 mg tablet TAKE 1 TABLET BY MOUTH ONCE DAILY 08/06 completed stopped by cardio Not Available Not Available Not Available azithromy eliel 250 mg tablet TAKE 2 TABLETS (500 MG) BY ORAL ROUTE ONCE DAILY FOR 1 DAY THEN 1 TABLET (250 MG) BY ORAL ROUTE ONCE DAILY FOR 4 DAYS 09/12 completed Not Available Not Available Not Available tizanidin e 4 mg tablet Take 1 tablet every day by oral route at bedtime. active Not Available Not Available No t Available atenolol 100 mg tablet TAKE 1 2 (ONE HALF) TABLET BY MOUTH TWICE DAILY active Not Available Not Available No t Available prednison e 20 mg tablet TAKE 2 TABLETS BY MOUTH ONCE DAILY FOR 5 DAYS 08/12 completed Not Available Not Available Not Available atenolol 25 mg tablet TAKE 1 TABLET BY MOUTH TWICE DAILY active Not Available Not Available No t Available ciproflox acin 250 mg tablet Take 1 tablet every 12 hours by oral route. active Not Available Not Available No t Available ciproflox acin 500 mg tablet TAKE 1 TABLET BY MOUTH TWICE DAILY FOR 7 DAYS active Not Available Not Available No t Available Tamiflu 75 mg capsule 01/11 completed Not Available Not Available Not Available enalapril 10 mg-hydroc hlorothia zide 25 mg tablet one tablet daily 02/06 completed Not Available Not Available Not Available neomycin- bacitraci n-polymyx n 3.5 mg-400 unit-10,0 00 unit/gram eye oint active Not Available Not Available Not Available prednisol one acetate 1 % eye drops,[facility] 08/24 completed Not Available Not Available Not Available benzonata te 100 mg capsule Take 1 capsule 3 times a day by oral route as needed. 09/12 completed Not Available Not Available Not Available pantopraz ole 40 mg tablet,de layed release TAKE 1 TABLET BY MOUTH ONCE DAILY 06/25 completed Not Available Not Available Not Available nystatin 100,000 unit/gram topical cream apply to rash daily active Not Available Not Available No t Available Alrex 0.2 % eye drops,[facility] 10/10 completed Not Available Not Available Not Available prednison e 50 mg tablet 10/10 completed Not Available Not Available Not Available diclofena c sodium 75 mg tablet,de layed release 01/11 completed Not Available Not Available Not Available etodolac 400 mg tablet 09/17 completed Not Available Not Available Not Available hydrochlo rothiazid e 25 mg tablet TAKE 1 TABLET BY MOUTH ONCE DAILY active Not Available Not Available No t Available mupirocin 2 % topical ointment 09/12 completed Not Available Not Available Not Available clobetaso l 0.05 % topical ointment APPLY OINTMENT TOPICALL Y TO AFFECTED AREA TWICE DAILY FOR 2-3 WEEKS. AVOID FACE, ARMPITS AND GROIN 12/10 completed Not Available Not Available Not Available levofloxa eliel 500 mg tablet Take 1 tablet every 24 hours by oral route for 7 days. 05/30 completed Not Available Not Available Not Available methylpre dnisolone 4 mg tablets in a dose pack Take 1 tablet by oral route. 04/08 completed Not Available Not Available Not Available albuterol sulfate HFA 90 mcg/actua tion aerosol inhaler INHALE 2 PUFFS BY MOUTH EVERY 4 TO 6 HOURS NEEDED active Not Available Not Available No t Available cefdinir 300 mg capsule Take 1 capsule twice a day by oral route. active Not Available Not Available No t Available fluticaso ne propionat e 50 mcg/actua tion nasal spray,frannie pension Inhale 2 sprays every day by intranas al route. 06/25 completed Not Available Not Available Not Available doxycycli ne hyclate 100 mg tablet TAKE 1 TABLET BY MOUTH TWICE DAILY FOR 7 DAYS 08/12 completed Not Available Not Available Not Available diazepam 5 mg tablet 09/17 completed Not Available Not Available Not Available amoxicill in 875 mg-potass ium clavulana te 125 mg tablet Take 1 tablet twice a day by oral route for 7 days. 09/12 completed Not Available Not Available Not Available hydroxyzi ne pamoate 25 mg capsule TAKE 1 CAPSULE BY MOUTH ONCE DAILY AT BEDTIME 06/25 completed Not Available Not Available Not Available TobraDex 0.3 %-0.1 % eye drops,frannie pension 4 DROPS IN RIGHT EAR 2X DAILY FOR 7 DAYS active Not Available Not Available No t Available rosuvasta tin 10 mg tablet TAKE 1 TABLET BY MOUTH ONCE DAILY active Not Available Not Available No t Available nitrofura ntoin monohydra te/macroc rystals 100 mg capsule TAKE 1 CAPSULE BY MOUTH TWICE DAILY FOR 5 DAYS 07/27 completed Not Available Not Available Not Available magnesium otc, takes daily 06/25 completed Not Available Not Available Not Available FA-8 (Folate) otc, takes daily 04/15 completed Not Available Not Available Not Available Glucosami ne otc, takes daily 08/19 completed Not Available Not Available Not Available fiber otc, takes daily 2020 active Not Available Not Available Not Avai lable Zaditor 08/19 completed Not Available Not Available Not Available Tylenol 8 Hour otc, takes PRN 06/25 completed Not Available Not Available Not Available mometason e 0.1 % topical solution 2 DROPS 2X DAILY NEEDED FOR ITCHY EARS active Not Available Not Available No t Available olopatadi ne 0.2 % eye drops INSTILL 1 DROP INTO EACH EYE ONCE DAILY active Not Available Not Available No t Available Pataday 0.1% eye solution . one drop in each eye everyday 2019 active Not Available Not Available Not Avai lable Allergy Relief (cetirizi ne) otc, takes daily 2020 active Not Available Not Available Not Avai lable GaviLyte- N 420 gram oral solution 04/08 completed Not Available Not Available Not Available gatifloxa eliel 0.5 % eye drops INSTILL ONE DROP IN LEFT EYE QID. 08/24 completed Not Available Not Available Not Available Lastacaft 0.25 % eye drops 08/30 completed Not Available Not Available Not Available folate 5-iron-C- Ca thre-ps dha-Bs 14 8.73 mg-1.5 mg iron-40 mg capsule Take by oral route. 08/19 completed Not Available Not Available Not Available Eliquis 5 mg tablet TAKE 1 TABLET BY MOUTH TWICE DAILY active Not Available Not Available No t Available Pazeo 0.7 % eye drops 08/30 completed Not Available Not Available Not Available Azo Cranberry otc, takes daily 07/27 completed Not Available Not Available Not Available glucosami ne 1,000 mg-D3 25 mcg-hyalu ronic acid 1.65 mg tablet Take 1 tablet every day by oral route. 2020 active Not Available Not Available Not Avai lable Paxlovid 300 mg (150 mg x 2)-100 mg tablets in a dose pack Take 1 tablet twice a day by oral route for 5 days. active Not Available Not Available No t Available Vitals Date Recorded Body mass index (BMI) Body mass index (BMI) Body height Body height Pain severity - 0-10 verbal numeric rating [Score] - Reported Heart rate Heart rate Body temperature Body temperature Body weight Body weight Systolic blood pressure Diastolic blood pressure Systolic blood pressure Diastolic blood pressure Provider Name and Address Organization Details Last Updated DateTime 3 36.9 kg/m2 37.3 kg/m2 152.4 cm 152.4 cm 0 60 /min 62 /min 97.9 [degF] 97.6 [degF] 39375.9 6 g 21440.1 4 g 122 mm[Hg] 78 mm[Hg] 120 mm[Hg] 82 mm[Hg] Not Available [facility] 3 04:44:58 Date Recorded Body height Body temperature Heart rate Body mass index (BMI) Body weight Systolic blood pressure Diastolic blood pressure Provider Name and Address Organization Details Last Updated DateTime 3 152.4 cm 99.2 [degF] 68 /min 36.3 kg/m2 74284.1 8 g 140 mm[Hg] 90 mm[Hg] ASIA Peña MA [employer] 3 12:10:12 Date Recorded Body height Body mass index (BMI) Body weight Body temperature Heart rate Oxygen saturation Oxygen saturation in Arterial blood by Pulse oximetry Systolic blood pressure Diastolic blood pressure Provider Name and Address Organization Details Last Updated DateTime 3 152.4 cm 36.9 kg/m2 37112.9 6 g 97.8 [degF] 66 /min 97 % 97 % 130 mm[Hg] 82 mm[Hg] Virgen Ham RN [facility] [employer] 3 11:05:57 Date Recorded Body height Body mass index (BMI) Body weight Body temperature Heart rate Systolic blood pressure Diastolic blood pressure Provider Name and Address Organization Details Last Updated DateTime 3 152.4 cm 35.2 kg/m2 73346.6 3 g 97.2 [degF] 69 /min 130 mm[Hg] 80 mm[Hg] ASIA Peña MA [employer] 3 11:36:14 Social History Question Answer Notes LastModified by Organization Details LastModified Time Tobacco Smoking Status Never Smoker Not Available [facility] 06/02/2022 04:14:28 Do You Have An Advance Directive? No MIGRATION.030 [id number] Information not available 06/02/2022 What Is Your Level Of Alcohol Consumption? Occasional MIGRATION.0301 [id number] Information not available 06/02/2022 Are You Blind Or Do You Have Difficulty Seeing? No MIGRATION.0301 [id number] Information not available 06/02/2022 What Is Your Level Of Caffeine Consumption? None MIGRATION.030 769863 Information not available 06/02/2022 How Much Tobacco Do You Chew? None MIGRATION.030 736515 Information not available 06/02/2022 In The 14 Days Before Symptom Onset, Have You Had Close Contact With A Laboratory-confi rmed COVID-19 While That Case Was Ill? No MIGRATION.0301 [id number] Information not available 06/02/2022 In The 14 Days Before Symptom Onset, Have You Had Close Contact With A Person Who Is Under Investigation For COVID-19 While That Person Was Ill? No MIGRATION.0301 [id number] Information not available 06/02/2022 Are You Currently Employed? No [email or web address] Information not available 08/12/2022 Are You Deaf Or Do You Have Serious Difficulty Hearing? No MIGRATION.030 910239 Information not available 06/02/2022 What Type Of Diet Are You Following? REGULAR MIGRATION.030 333140 Information not available 06/02/2022 Which Illicit Or Recreational Drugs Have You Used? None MIGRATION.030 056230 Information not available 06/02/2022 Do You Or Have You Ever Used E-cigarettes Or Vape? Never Used Electronic Cigarettes MIGRATION.030 874803 Information not available 06/02/2022 What Is The Highest Grade Or Level Of School You Have Completed Or The Highest Degree You Have Received? [id number] MIGRATION.030 979656 Information not available 06/02/2022 What Is Your Occupation? Retired MIGRATION.030 515274 Information not available 06/02/2022 Have There Been Any Changes To Your Family Or Social Situation? No MIGRATION.030 086053 Information not available 06/02/2022 What Is The Fluoride Status Of Your Home? Unknown MIGRATION.030 970981 Information not available 06/02/2022 Are There Any Guns Present In Your Home? No MIGRATION.0301 605679 Information not available 06/02/2022 Do You Use Insect Repellent Routinely? No MIGRATION.0301 438761 Information not available 06/02/2022 Where Do You Live? [place] MIGRATION.0301 468926 Information not available 06/02/2022 Do You Have A Medical Power Of Education Dean? No MIGRATION.0301 087630 Information not available 06/02/2022 What Was The Date Of Your Most Recent Tobacco Screening? 12/09/2022 [email or web address] Information not available 12/09/2022 Have You Ever Been Counseled For Unhealthy Alcohol Use? No MIGRATION.0301 073188 Information not available 06/02/2022 Do You Have Any Pets? Yes MIGRATION.0301 096745 Information not available 06/02/2022 What Is Your Relationship Status? MIGRATION.0301 076904 Information not available 06/02/2022 Do You Use Your Seat Belt Or Car Seat Routinely? Yes MIGRATION.0301 770750 Information not available 06/02/2022 Do You Have Smoke And Carbon Monoxide Detectors In Your Home? Yes MIGRATION.0301 045549 Information not available 06/02/2022 Are You Passively Exposed To Smoke? No MIGRATION.0301 610663 Information not available 06/02/2022 Do You Or Have You Ever Used Smokeless Tobacco? Never Used Smokeless Tobacco MIGRATION.0301 368560 Information not available 06/02/2022 Are There Any Smokers In Your House? No MIGRATION.0301 772486 Information not available 06/02/2022 How Much Tobacco Do You Smoke? No MIGRATION.0301 551593 Information not available 06/02/2022 What Types Of Sporting Activities Do You Participate In? None MIGRATION.0301 616301 Information not available 06/02/2022 Do You Feel Stressed (tense, Restless, Nervous, Or Anxious, Or Unable To Sleep At Night)? [id number] MIGRATION.0301 844540 Information not available 06/02/2022 Do You Use Any Illicit Or Recreational Drugs? No MIGRATION.0301 834980 Information not available 06/02/2022 Do You Use Sunscreen Routinely? No MIGRATION.0301 925166 Information not available 06/02/2022 Has Tobacco Cessation Counseling Been Provided? No Not Needed-n ever Smoked MIGRATION.0301 610209 Information not available 06/02/2022 How Many Years Have You Smoked Tobacco? 0 MIGRATION.0301 617811 Information not available 06/02/2022 Have You Recently Traveled Abroad? No MIGRATION.0301 789711 Information not available 06/02/2022 Do You Have Any Dietary Restrictions? No MIGRATION.0301 884739 Information not available 06/02/2022 Do You Or Have You Ever Used Any Other Forms Of Tobacco Or Nicotine? No MIGRATION.0301 589204 Information not available 06/02/2022 Sex: Female Functional Status Question Answer Note LastModified by Organizat ion Details LastModified Time Do you have difficulty walking or climbing stairs? No MIGRATION.[id number] 026 Information not available 06/02/2022 Do you have transportation difficulties? No MIGRATION.8592834 026 Information not available 06/02/2022 Are you able to walk? YESWOREST MIGRATION.8593495 026 Information not available 06/02/2022 Do you have difficulty doing errands alone? No MIGRATION.4606594 026 Information not available 06/02/2022 Are you able to care for yourself? Yes MIGRATION.6168214 026 Information not available 06/02/2022 Do you have difficulty dressing or bathing? No MIGRATION.1260147 026 Information not available 06/02/2022 What is your exercise level? None MIGRATION.9770815 026 Information not available 06/02/2022 Mental Status Question Answer Note LastModified by Organizat ion Details LastModified Time Do you have difficulty concentrating, remembering or making decisions? No MIGRATION.[id number] 6 Information not available 06/02/2022 Family History Relationship Description Onset Age of this Age Resolved Age Notes LastModified by Organization Details LastModified Time Father Myocardial infarction 36 MIGRATION.582 [id number] Not available 06/02/2022 04:42:36 Mother Malignant tumor of lung MIGRATION.499 [id number] Not available 06/02/2022 04:42:36 Son Diverticular disease MIGRATION.062 [id number] Not available 06/02/2022 04:42:36 Medical History Condition Response BLINDNESS N NERVE DISEASE N RHEUMATIC FEVER N BLADDER PROBLEMS N KIDNEY STONES N MRSA N OTHER # 1 N POLIO N LUNG DISEASE/DISORDER N RADIATION / CHEMOTHERAPY N COPD N Other # 2 N BLOOD DISEASES N EAR OR HEARING PROBLEMS N MUMPS N DEPRESSION (INCLUDING POST ) N BOWEL PROBLEMS N STROKE/TIA N ULCERS N BENIGN PROSTATIC HYPERPLASIA N MEASLES N MYOCARDIAL INFARCTION N OBESITY N GERD/NAUSEA N ANEURYSM N URINARY/BLADDER/KIDNEY PROBLEMS N CORONARY ARTERY DISEASE (CAD) N ADDICTION CONCERNS N ENDOMETRIOSIS N Impotence N USE OF BLOOD THINNERS Y SKIN PROBLEMS Y GASTROINTESTINAL DISORDER N PERIPHERAL VASCULAR DISEASE N MUSCLE,JOINT OR BONE PROBLEMS N GASTROINTESTINAL BLEEDING N BLOOD CLOTS N ASTHMA N CATARACTS N ERECTILE DYSFUNCTION N VARICOSITIES N GI PROBLEMS N Low Testosterone N INFERTILITY N AIDS/HIV N CHEMOTHERAPY / RADIATION N LIVER DISEASE N MALE HYPOGONADISM N HYPERTENSION Y Deficiency N TOURETTE'S N ANXIETY DISORDER N BLOOD TRANSFUSION N ANEMIA/BLOOD DISORDER N CHRONIC EAR INFECTIONS N BRONCHITIS Y TUBERCULOSIS N GLAUCOMA N FOOT PROBLEM N DIVERTICULITIS N SLEEP APNEA N CHICKENPOX N INFECTIOUS DISEASE N HEART ARRHYTHMIA N PROSTATE N INSOMNIA N HIGH CHOLESTEROL / HYPERLIPIDEMIA Y HYPERTHYROIDISM N EYE PROBLEMS N EDEMA N CHRONIC PAIN SYNDROME N HYPOTHYROIDISM N CAROTID BLOCKAGE N CONSTIPATION N BACK / NECK PROBLEMS N HAVE YOU BEEN HOSPITALIZED OR SEEN IN [facility] IN THE PAST YEAR ? N ATHEROSCLEROSIS N BREAST PROBLEMS N DIALYSIS N ECZEMA N HISTORY WITH COMPLICATIONS WITH ANESTHES IA ? Y OSTEOPOROSIS N ARTHRITIS N APPENDICITIS N DIABETES, TYPE N BAD TEETH N ENT N HEARTBURN / REFLUX N AUTISM SPECTRUM DISORDER (ASD) N HEPATITIS / LIVER DISEASE N GOUT N SLEEP DISORDER N ALZHEIMER'S DISEASE N Brain Problems N HERPES N DEMENTIA N HEADACHES/MIGRAINES N SEIZURES/EPILEPSY N VASCULAR DISEASE N PACEMAKER N Blood Disorder N DIZZINESS N HEART DISEASE/HEART PROBLEMS Y KIDNEY DISEASE N MULTIPLE SCLEROSIS N CARDIAC ARRHYTHMIA N CANCER: SPECIFY Y ATRIAL FIBRILLATION Y Gall Stones N PULMONARY EMBOLISM N AUTOIMMUNE DISEASE N Gynecological History Statement/Question Response Date of Last Mammogram 08/08/2021 Date of Last Colonoscopy Most Recent Bone Density Obstetrics History GPAL:G 0 P 0 0 0 0 Immunizations Vaccine Type Date Status Note Provider Nam e and Address Organization Details Recorded Time zoster, unspecified formulation 3 completed Not Available [facility] 10/11/2022 16:53:09 Tdap 3 completed Not Available [facility] 10/11/2022 16:53:09 RSV, recombinant, protein subunit RSVpreF, adjuvant reconstituted, 0.5 mL, PF 3 completed ASIA [place] [employer] 03/09/2023 13:19:51 COVID-19, mRNA, LNP-S, PF, 100 mcg/0.5mL dose or 50 mcg/0.25mL dose 3 completed ASIA [place] [facility] [employer] 03/09/2023 13:50:33 COVID-19, mRNA, LNP-S, PF, 100 mcg/0.5mL dose or 50 mcg/0.25mL dose 1 completed Not Available [facility] 10/11/2022 16:53:09 COVID-19, mRNA, LNP-S, PF, 100 mcg/0.5mL dose or 50 mcg/0.25mL dose 1 completed Not Available [facility] 10/11/2022 16:53:09 Pneumococcal conjugate PCV 13 1 completed Not Available [facility] 10/11/2022 16:53:09 Influenza, high-dose, trivalent, PF 7 completed Not Available [facility] 10/11/2022 16:53:09 zoster, unspecified formulation 3 completed Not Available [facility] 10/11/2022 16:53:09 COVID-19, mRNA, LNP-S, PF, 100 mcg/0.5mL dose or 50 mcg/0.25mL dose 2 completed Not Available [facility] 10/11/2022 16:53:09 pneumococcal polysaccharide PPV23 2 completed Not Available [facility] 10/11/2022 16:53:09 COVID-19, mRNA, LNP-S, PF, 100 mcg/0.5mL dose or 50 mcg/0.25mL dose 2 completed Not Available [facility] 10/11/2022 16:53:09 COVID-19, mRNA, LNP-S, PF, 100 mcg/0.5mL dose or 50 mcg/0.25mL dose 1 completed Not Available [facility] 10/11/2022 16:53:09 Influenza, high-dose, trivalent, PF 8 completed Not Available [facility] 10/11/2022 16:53:09 Past Encounters Encounter ID Performer Location Encounter Start Date Encounter Closed Date Diagnosis/Indication Diagnosis SNOMED-CT Code Diagnosis ICD10 Code Diagnosis Note [id number] [facility] Internal Med [place] [address] [facility] [place] [address] 08/19/2020 00:00:00 08/19/2020 22:43:23 [id number] [facility] Internal [facility] [place] [address] [place] [address] y , [place] [address] 11/25/2020 00:00:00 12/08/2020 20:36:33 [id number] [facility] [place] [address] [place] [address] y , [place] [address] 03/24/2021 00:00:00 04/05/2021 20:40:05 [id number] [facility] [place] [address] [place] [address] y , [place] [address] 04/09/2021 00:00:00 04/10/2021 13:33:38 [id number] [facility] [place] [place] [address] [place] [address] 06/25/2021 00:00:00 06/25/2021 11:35:24 [id number] [facility] [place] [address] [place] [address] 07/23/2021 00:00:00 07/23/2021 12:38:41 [id number] [facility] [place] [address] [place] [address] y , [place] [address] 08/06/2021 00:00:00 08/06/2021 23:15:03 [id number] [facility] [place] [address] [place] [address] 09/22/2021 00:00:00 09/22/2021 11:59:44 [id number] [facility] [place] [address] [place] [address] y , [place] [address] 12/10/2021 00:00:00 12/20/2021 12:04:37 [id number] [facility] [place] [address] [place] [address] y , [place] [address] 04/15/2022 00:00:00 04/15/2022 23:42:35 [id number] Mari Nguyen MD [facility] Internal Med [place] [address] [place] [address] [place] [address] [address] 07/27/2022 11:51:33 07/27/2022 12:45:47 Bronchitis 49540668 J40 Chest pain 98160006 R07. 9 [id number] Mari Nguyen MD [facility] Internal Med [place] [address] [place] [address] y , [place] [address] 08/12/2022 10:57:56 08/12/2022 11:54:03 Benign hypertension 28095527 I10 Anxiety 96679542 F41.9 Chronic at rial fibrillation 498958808 I48.20 Hypercholesterolemia 136 49370 E78.00 [id number] Mari Nguyen MD [facility] Internal Med [place] [address] [place] [address] [place] [address] [address] 12/09/2022 11:16:51 12/09/2022 12:16:57 Anxiety 95937848 F41.9 Chronic at rial fibrillation 486289088 I48.20 Benign hypertension 1072 5009 I10 Hypercholesterolemia 136 74275 E78.00 Health Concerns Section Related Observation LastModified by Organization Detai ls LastModified Time None Recorded Concern Status LastModified by Organization Details LastModified Time None Recorded Advance Directives Directive N: Payers Encounter Date Sequence Insurance Name Policy Number Policy Allen Covered Member ID Allen Member ID Guarantor Name 07/27/2022 1 MEDICARE B: [employer] - [employer] MEDICARE Holley Arrington [id number] 1 Holley Arrington 07/27/2022 2 [employer] (MEDICARE SUPPLEMENT) PLANF Holley Arrington [id number] Holley Arrington 08/12/2022 1 [facility] MEDIC[facility] Holley Arrington [id number] 1 Holley Arrington 08/12/2022 2 [employer] (MEDICARE SUPPLEMENT) PLANF Holley Arrington [id number] Holley Arrington 12/09/2022 1 MEDICARE B: [facility] MEDICARE Holley Arrington [id number] 1 Holley Arrington 12/09/2022 2 [employer] (MEDICARE SUPPLEMENT) PLANF Holley Arrington [id number] Holley Arrington Notes Date Note Type Note Provider Name and Address Organization Details Recorded Time 3 text/html unscheduled appointment cough wheezing some shortness of breath she had some chest discomfort yesterday for a couple of hours left-sided was not pleuritic felt something down her arm that was not consistent it is not present today Mari Nguyen MD [address], [place], [address], [employer] 07/27/2022 22:49:18 3 text/html hypertension no headache no dizzinessasthmatic bronchitis she is markedly improved no cough or wheezinganxiety stable no SI or HIAFib no palpitations or dizzinessdyslipidemia trying to follow a low-fat diet Mari Nguyen MD [address], [place], [address], [employer] 08/12/2022 13:46:08 3 text/html hypertension no headache no dizzinessasthmatic bronchitis she is markedly improved no cough or wheezinganxiety stable no SI or HIAFib no palpitations or dizzinessdyslipidemia trying to follow a low-fat diet Mari Nguyen MD [address], [place], [address], [employer] 12/27/2022 22:42:07 OBGyn Episode No OBEpisode recorded.
--- OUTSIDE RECORDS SUMMARY | 2024-05-17 14:19 | XMS_ITS | Referral Summary ---
Author Organization [facility] Address [address] [place] [address] Care Team Providers Care Beater Boss Name Role Phone Ciro Nguyen MD Primary [...] Hypertension Mixed hyperlipidemia Nonrheumatic mitral valve regurgitation Social History Tobacco Use Types Packs/Day Years Used Date Smoking Tobacco: Never Smokeless Tobacco: Never Personal Safety Answer Date Recorded Getting School Help Needed Not on file 06/02 Comments Unknown Sex and Gender Information Value Date Recorded Sex Assigned at Not on file Legal Sex Female 2:07 AM [employer] Gender Identity Not on file Sexual Orientation Not on file Last Filed Vital Signs Vital Sign Reading Time Taken Comments Blood Pressure 106/64 05/26/2020 12:15 PM [employer]ANSFORMER [employer] Pulse 69 05/26/2020 12:15 PM [employer]ANSFORM[employer] Temperature 35.4 C (95.7 F) 06/07/2017 1:55 PM TRANSFORMER TE[employer] Respiratory Rate - - Oxygen Saturation 97% 05/26/2020 12:15 PM TRANSFORMER TE[employer] Inhaled Oxygen Concentration - - Weight 87 kg (191 lb 12.8 oz) 05/26/2020 12:15 P M [employer]FORM[employer] Height 155.6 cm (5' 1.25 ) 11/24/2023 1:53 PM CD T Body Mass Index 36.24 05/26/2020 12:15 PM [employer]ANSFORMER TE[employer] Plan of Treatment Not on file Procedures Procedure Name Priority Date/Time Associated Diagnosis [...] year. History of left breast cancer in 1995 status post conservation therapy. COMPARISON: Mammograms dated [...] or solid mass or other suspicious finding. Ciro Nguyen MD IMG MAMMO PROCEDURES Final R esult from Last 3 Months or Most Recently Relevant to Health Maintenance Insurance MEDICARE RAILROAD MEDICARE RAILROAD MEDICARE RAILROAD [facility] Care Teams Beater Boss Relationship Specialty Start Date End Date Ciro Nguyen MD [address] [place] [address] PCP - General 06/08/16
[2024-05-17 19:16] LABS: Basophils Percent Auto 0.5 % (0.2-1.2); Eosinophils Absolute Auto 0.2 K/mm3 (0-0.3); Eosinophils Percent Auto 2.5 % (0-4.4); Hematocrit 44.9 % (37.0-47.0); Hemoglobin 15.1 g/dL (12.0-15.0); Immature Granulocyte Absolute 0.01 K/mm3 (0.00-0.031); Immature Granulocyte Percent A 0.2 % (0-0.5); Lymphocytes Absolute Auto 1.99 K/mm3 (0.9-3.2); Lymphocytes Percent Auto 33.7 % (18.3-44.2); Mean Corpuscular HGB Conc 33.6 g/dl (32-36); Mean Corpuscular Hemoglobin 31.1 pg (26-34); Mean Corpuscular Volume 92.4 fl (80-100); Mean Platelet Volume 10.4 fl (7.4-10.4); Monocytes Absolute Auto 0.7 K/mm3 (0.1-0.6); Monocytes Percent Auto 11.3 % (2.6-8.5); Neutrophils Absolute Auto 3.1 K/mm3 (1.3-6.7); Neutrophils Percent Auto 51.8 % (45.5-73.1); Platelet Count Result 222 k/mm3 (150-375); Red Blood Count 4.86 M/mm3 (4.2-5.4); Red Cell Distribution Width 13.6 % (11.5-14.5); White Blood Count 5.9 K/mm3 (4.5-10.0)
[2024-05-17 19:44] LABS: Alanine Aminotransferase 35 U/L (6-35); Albumin Level 4.2 g/dL (3.5-5.1); Alkaline Phosphatase 76 U/L (38-126); Anion Gap 9 mmol/L (4-12); Aspartate Amino Transferase 48 U/L (14-36); Bilirubin,Total 0.9 mg/dL (0.2-1.3); Blood Urea Nitrogen 19 mg/dL (7-17); Calcium 9.6 mg/dL (8.4-10.2); Carbon Dioxide 32 mmol/L (22-30); Chloride 99 mmol/L (98-107); Cholesterol 127 mg/dL (0-200); Estimated Glomerular Filt Rate > 60; Glucose 106 mg/dL (65-110); HDL Direct 44 mg/dL; Potassium 3.8 mmol/L (3.4-5.0); Sodium 140 mmol/L (137-145); Triglycerides 148 mg/dL (<150)
[2024-05-17 19:58] LABS: LDL Cholesterol Direct 55 mg/dL
== END 2024-05-17 14:11 | disposition home or self-care (01) ==
LOC: ANHGOSHLAB 14:12
PROVIDERS: PCP Internal Medicine; Visit Provider Internal Medicine
DX: I10 Essential (primary) hypertension (principal)
CPT/HCPCS: 36415; 80053; 80061; 85025

== ENCOUNTER 2024-05-17 14:33 | Outpatient (CLI) | payer MEDICARE, OTHER, SELFPAY ==
--- NOTE | ~2024-05-17 | XR_ITS ---
HISTORY: LOW BACK PAIN COMPARISON: None. TECHNIQUE: 2 view lumbar spine. FINDINGS: 22 degrees of levoscoliotic curvature of the lumbar spine is identified. Grade 1 anterolisthesis of L3 onto L4 and L4 onto L5. Lumbar vertebral bodies are otherwise normally aligned. There are 5 non-rib bearing lumbar vertebral bodies. Degenerative disease is identified, with osteophyte formation and disc space narrowing. Vertebral body heights are well maintained. Significant facet arthropathy is present with sclerosis. Calcification of the infrarenal abdominal aorta. Remaining paraspinal soft tissues are unremarkable. IMPRESSION: Degenerative disease (as detailed above) without acute fracture. Reviewed, dictated and finalized at location [facility]. [facility]
== END 2024-05-17 14:34 | disposition home or self-care (01) ==
LOC: GOSHIMG 14:35
PROVIDERS: Visit Provider Internal Medicine
DX: M47.816 Spondylosis without myelopathy or radiculopathy, lumbar region (principal)
CPT/HCPCS: 72100